=== PATIENT | male | born 1935 | race Caucasian/White ===

== ENCOUNTER 2017-01-10 17:46 | Inpatient (IN) | payer MEDICARE ==
[~2017-01-10] VITALS: Ht 180.3 cm; Wt 87.2 kg
[2017-01-10 18:42] LABS: BASO # 0.1 x10^3/uL (0.0-0.2); BASO % 1 % (0-3); EOS # 0.2 x10^3/uL (0.0-0.7); EOS % 2 % (0-3); HEMATOCRIT 41.1 % (39.0-53.0); LYMPH # 2.6 x10^3/uL (1.0-4.8); LYMPH % 25 % (24-48); MEAN CORPUSCULAR HEMOGLOBIN 30 pg (25-35); MEAN CORPUSCULAR HGB CONC 34 g/dL (31-37); MEAN CORPUSCULAR VOLUME 89 fL (79-100); MONO # 0.8 x10^3/uL (0.0-1.1); MONO % 8 % (0-9); NEUT # 6.8 x10^3uL (1.8-7.7); NEUT % 65 % (31-73); PLATELET COUNT 237 x10^3/uL (140-400); RED BLOOD COUNT 4.65 x10^6/uL (4.30-5.70); RED CELL DISTRIBUTION WIDTH 15.7 % (11.5-14.5); WHITE BLOOD COUNT 10.5 x10^3/uL (4.0-11.0)
[2017-01-10 18:59] LABS: ALBUMIN 3.6 g/dL (3.4-5.0); CALCIUM 8.8 mg/dL (8.5-10.1); CREATININE 2.2 mg/dL (0.7-1.3); DIRECT BILIRUBIN 0.1 mg/dL (0.0-0.2); GFR 28.7; MAGNESIUM 1.8 mg/dL (1.8-2.4); POTASSIUM 5.6 mmol/L (3.5-5.1); TOTAL BILIRUBIN 0.4 mg/dL (0.2-1.0); TOTAL PROTEIN 6.6 g/dL (6.4-8.2)
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
[2017-01-10 19:15] LABS: AMPHETAMINE/METHAMPHETAMINE NEG (NEG); BARBITURATES NEG (NEG); BENZODIAZEPINES POS (NEG); CANNABINOIDS NEG (NEG); COCAINE NEG (NEG); METHADONE NEG (NEG); OPIATES NEG (NEG); PHENCYCLIDINE NEG (NEG)
[2017-01-10 19:18] LABS: BACTERIA,URINE 0 /HPF (0-FEW); BILIRUBIN,URINE NEG (NEG); CLARITY,URINE CLEAR; COLOR,URINE YELLOW; GLUCOSE,URINE NEG (NEG); NITRITE,URINE NEG (NEG); RBC,URINE OCC /HPF (0-2); SQUAMOUS EPITHELIAL CELL,UR OCC /LPF; UROBILINOGEN,URINE 0.2 mg/dL (0.2 mg/dL); WBC,URINE OCC /HPF (0-4)
--- NOTE | 2017-01-10 19:19 | EKG ---
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
[2017-01-10] MEDS ORDERED: IV NORMAL SALINE 1,000ML 1,000 ML IV ONE (19:30)
[2017-01-10] MEDS ORDERED: LISI-338 PO (20:29)
[2017-01-10] MEDS ORDERED: LEVO88TA4 PO (20:29)
[2017-01-10] MEDS ORDERED: LORA10TA3 PO (20:29)
[2017-01-10] MEDS ORDERED: PRAM177L22 TP (20:29)
[2017-01-10] MEDS ORDERED: ACET325T9 PO (20:29)
[2017-01-10] MEDS ORDERED: MULT1TAB52 PO (20:29)
[2017-01-10] MEDS ORDERED: CLOP75TA57 PO (20:29)
[2017-01-10] MEDS ORDERED: GUAI473L15 PO (20:29)
[2017-01-10] MEDS ORDERED: BISA10SU2 RC (20:29)
[2017-01-10] MEDS ORDERED: POLY17PO5 PO (20:29)
[2017-01-10] MEDS ORDERED: CITA40TA5 PO (20:29)
[2017-01-10] MEDS ORDERED: TAMS0.4C97 PO (20:29)
[2017-01-10] MEDS ORDERED: MAGN400O7 PO (20:29)
[2017-01-10] MEDS ORDERED: ALPR0.5T6 PO (20:29)
[2017-01-10] MEDS ORDERED: ASPI-630 PO (20:29)
[2017-01-10] MEDS ORDERED: DONE10TA7 PO (20:32)
[2017-01-10] MEDS ORDERED: ALBU2.5V5 NEB (20:32)
[2017-01-10] MEDS ORDERED: ACETAMINOPHEN 325 MG TABLET PO PRN (22:45)
[2017-01-10] MEDS ORDERED: MAG HYDROX/AL HYDROX/SIMETH 30 ML ORAL.SUSP PO PRN (22:45)
[2017-01-10] MEDS ORDERED: MAGNESIUM HYDROXIDE 2,400 MG/30 ML ORAL.SUSP. PO PRN (22:45)
[2017-01-10] MEDS ORDERED: METHYL SALICYLATE/MENTHOL TOPICAL OINTMENT 29GM TUBE. TP PRN (22:45)
[2017-01-10] MEDS ORDERED: Influenza vaccine per PROTOCOL. MC PRN (23:15)
[2017-01-10 23:30] VITALS: BP 148/83
[2017-01-10] MEDS: ALPRAZolam 0.5 MG TABLET PO SCH (23:49)
[2017-01-10] MEDS: DONEPEZIL HCL 10 MG TABLET PO SCH (23:49)
[2017-01-11 06:14] VITALS: BP 133/71
[2017-01-11 07:47] LABS: CREATININE 2.3 mg/dL (0.7-1.3); GFR 27.3; POTASSIUM 5.7 mmol/L (3.5-5.1)
[2017-01-11] MEDS ORDERED: MAGNESIUM HYDROXIDE 2,400 MG/30 ML ORAL.SUSP. PO PRN (08:00)
[2017-01-11] MEDS ORDERED: ACETAMINOPHEN 325 MG TABLET PO PRN (08:00)
[2017-01-11] MEDS ORDERED: POLYETHYLENE GLYCOL 3350 17 GM PACKET. PO PRN (08:00)
[2017-01-11] MEDS ORDERED: BISACODYL 10 MG SUPP.RECT RC PRN (08:00)
[2017-01-11] MEDS ORDERED: ALBUTEROL SULFATE 2.5 MG/3 ML NEBU. NEB PRN (08:00)
[2017-01-11] MEDS ORDERED: guaiFENesin/CODEINE 100mg/10mg 5 ML LIQUID PO PRN (09:00)
[2017-01-11] MEDS ORDERED: SODIUM POLYSTYRENE SULFONATE 15 GM/60 ML ORAL.SUSP. PO ONE (09:00)
[2017-01-11] MEDS ORDERED: FLU VACC QS2017-18 (36MOS+)/PF 0.5 ML SYRINGE. VAX IM ONE (09:00)
[2017-01-11] MEDS: ALPRAZolam 0.5 MG TABLET PO SCH ×2 (09:35→20:06)
[2017-01-11] MEDS: CITALOPRAM 20 MG TABLET. PO SCH (09:35)
[2017-01-11] MEDS: CLOPIDOGREL BISULFATE 75 MG TABLET PO SCH (09:35)
[2017-01-11] MEDS: MULTIVITAMIN with MINERAL TABLET. PO SCH (09:35)
[2017-01-11] MEDS: CETIRIZINE HCL 10 MG TABLET PO SCH (09:35)
[2017-01-11] MEDS: TAMSULOSIN 0.4 MG CAP.ER.24H. PO SCH (09:35)
[2017-01-11] MEDS: ASPIRIN 81 MG TAB.CHEW PO SCH (09:36)
[2017-01-11] MEDS ORDERED: CALAMINE/ZINC OXIDE TOPICAL SUSPENSION 177ML BOTTLE. TP PRN (10:30)
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
[2017-01-11 16:38] VITALS: BP 120/72
[2017-01-11 19:30] LABS: THYROID STIM HORMONE (TSH) 3.071 uIU/mL (0.358-3.740)
[2017-01-11] MEDS: DONEPEZIL HCL 10 MG TABLET PO SCH (20:07)
[2017-01-11 21:11] LABS: T3 TOTAL 70 ng/dL (71-180)
--- NOTE | 2017-01-11 21:19 | PDOC ---
Exam Ric Demential Exam: Ric Note: Please also refer to the separate dictated note~for this date of service dictated separately.~Patient seen individually. Discussed the patient with Nursing staff reviewed the chart.~Reviewed interim history and current functioning. Reviewed vital signs,~Labs/ Radiology~and current medications noted below. Continue current treatment with the changes noted in the dictated addendum note Assessment: Vital Signs: Vital Signs Date Time Temp Pulse Resp B/P (MAP) Pulse Ox O2 Delivery O2 Flow Rate FiO2 01/11/17 16:38 98.4 72 16 120/72 (88) 96 01/11/17 06:14 Room Air 01/10/17 23:30 93.0 I&O Intake and Output 01/12/17 07:00 Intake Total 600 ml Balance 600 ml Intake Oral 600 ml # Bowel Movements 1 Labs: Laboratory Tests Test 01/11/17 06:58 Sodium Level 139 mmol/L (136-145) Potassium Level 5.7 mmol/L (3.5-5.1) H Chloride Level 111 mmol/L (98-107) H Carbon Dioxide Level 20 mmol/L (21-32) L Anion Gap 8 (6-14) Blood Urea Nitrogen 33 mg/dL (8-26) H Creatinine 2.3 mg/dL (0.7-1.3) H Estimated GFR (Cockcroft-Gault) 27.3 Glucose Level 77 mg/dL (70-99) Calcium Level 9.0 mg/dL (8.5-10.1) Current Medications: Meds: Current Medications Sodium Chloride 1,000 ml @ 100 mls/hr 1X ONCE IV ; Start 01/10/17 at 19:30; Stop 01/10/17 at 19:30; Status DC Alprazolam (Xanax) 0.5 mg BID PO Last administered on 01/11/17 20:06; Start at 23:00 Donepezil HCl (Aricept) 10 mg HS PO Last administered on 01/11/17 20:07; Start 01/10/17 at 23:00 Citalopram Hydrobromide (CeleXA) 40 mg DAILY PO Last administered on 01/11/17 09:35; Start 01/11/17 at 09:00 Acetaminophen (Tylenol) 650 mg PRN Q6HRS PRN PO PAIN / TEMP; Start 01/10/17 at 22:45; Status Cancel Multi-Ingredient Ointment (Analgesic [place]) 1 evie PRN QID PRN TP MUSCLE PAIN; Start 01/10/17 at 22:45 Al Hydroxide/Mg Hydroxide (Mylanta Plus Xs) 15 ml PRN AFTMEALHC PRN PO DYSPEPSIA; Start 01/10/17 at 22:45 Magnesium Hydroxide (Milk Of Magnesia) 2,400 mg PRN QHS PRN PO CONSTIPATION; Start 01/10/17 at 22:45; Stop 01/11/17 at 10:44; Status DC Info (FLU VACCINE per PROTOCOL) 1 ea PRN 1X PRN MC PER PROTOCOL; Start at 23:15; Status UNV Influenza Virus Vaccine Quadrival (Fluarix Quad [id number] Syringe) 0.5 ml ONCE ONCE VAX IM Last administered on 01/11/17 09:51; Start 01/11/17 at 09:00; Stop 01/11/17 at 09:01; Status DC Acetaminophen (Tylenol) 650 mg PRN Q4HRS PRN PO PAIN / TEMP; Start 01/11/17 at 08:00 Albuterol Sulfate (Ventolin) 2.5 mg PRN TID PRN NEB SHORTNESS OF BREATH; Start 01/11/17 at 08:00 Aspirin (Children'S Aspirin) 81 mg DAILY PO Last administered on 01/11/17 09: 36; Start 01/11/17 at 09:00 Bisacodyl (Dulcolax Supp) 10 mg PRN DAILY PRN RC CONSTIPATION; Start 01/11/17 at 08:00 Clopidogrel Bisulfate (Plavix) 75 mg DAILY PO Last administered on 01/11/17 09 :35; Start 01/11/17 at 09:00 Levothyroxine Sodium (Synthroid) 88 mcg DAILYAC PO ; Start 01/12/17 at 07:30 Magnesium Hydroxide (Milk Of Magnesia) 2,400 mg PRN DAILY PRN PO CONSTIPATION; Start 01/11/17 at 08:00 Polyethylene Glycol (miraLAX) 17 gm PRN DAILY PRN PO CONSTIPATION; Start at 08:00 Tamsulosin HCl (Flomax) 0.4 mg DAILY PO Last administered on 01/11/17 09:35; Start 01/11/17 at 09:00 Guaifenesin/ Codeine Phosphate (Robitussin Ac) 10 ml PRN Q4HRS PRN PO COUGH; Start 01/11/17 at 09:00 Cetirizine HCl (ZyrTEC) 10 mg DAILY PO Last administered on 01/11/17 09:35; Start 01/11/17 at 09:00 Multivitamins/ Calcium (Thera-M Plus) 1 tab DAILY PO Last administered on 09:35; Start 01/11/17 at 09:00 Calamine (Calamine Lotion) 1 evie PRN TID PRN TP ITCHING; Start 01/11/17 at 10: 30 Sodium Polystyrene Sulfonate (Kayexalate) 15 gm 1X ONCE PO Last administered on 01/11/17 09:36; Start 01/11/17 at 09:00; Stop 01/11/17 at 09:01; Status DC Active Scripts Active Reported Donepezil Hcl 10 Mg Tablet 10 Mg PO HS Albuterol Sulfate Neb Soln (Albuterol Sulfate) 2.5 Mg/3 Ml Vial.neb 1 Vial NEB PRN TID PRN Alprazolam 0.5 Mg Tablet 0.5 Mg PO BID Tylenol (Acetaminophen) 325 Mg Tablet 650 Mg PO PRN Q4HRS PRN Plavix (Clopidogrel Bisulfate) 75 Mg Tablet 75 Mg PO DAILY Multivitamins (Multivitamin) 1 Each Tablet 1 Tab PO DAILY Miralax (Polyethylene Glycol 3350) 17 Gm Powd.pack 17 Gm PO PRN DAILY PRN Milk Of Magnesia (Magnesium Hydroxide) 400 Mg/5 Ml Oral.susp 30 Ml PO PRN DAILY PRN Loratadine 10 Mg Tablet 10 Mg PO DAILY Lisinopril 5 Mg Tablet 5 Mg PO DAILY Levothyroxine Sodium 88 Mcg Tablet 88 Mcg PO DAILYAC Guaifenesin Ac Cough Syrup (Guaifenesin/Codeine Phosphate) 473 Ml Liquid 10 Ml PO PRN Q4HRS PRN Flomax (Tamsulosin Hcl) 0.4 Mg Cap.er.24h 0.4 Mg PO DAILY Bisacodyl 10 Mg Supp.rect 10 Mg RC PRN DAILY PRN Citalopram Hbr (Citalopram Hydrobromide) 40 Mg Tablet 40 Mg PO DAILY Caladryl 1%-8% Lotion (Pramoxine HCl/Calamine) 177 Ml Lotion 1 Evie TP PRN TID PRN Aspirin 81 Mg Tab.chew 81 Mg PO DAILY Diagnosis: Problems: (1) Dementia with behavioral disturbance KATARZYNA GRANT MD Jan 11, 2017 21:19
[2017-01-11 22:09] LABS: THYROXINE 6.2 ug/dL (4.5-12.0)
[2017-01-12 03:15] LABS: HEMOGLOBIN A1C 5.3 % (4.8-5.6)
[2017-01-12 06:10] LABS: CALCIUM 8.9 mg/dL (8.5-10.1); CREATININE 2.2 mg/dL (0.7-1.3); GFR 28.7; MAGNESIUM 1.9 mg/dL (1.8-2.4); POTASSIUM 4.9 mmol/L (3.5-5.1)
[2017-01-12 06:12] VITALS: BP 103/65
[2017-01-12] MEDS: LEVOTHYROXINE 88 MCG TABLET PO SCH ×2 (07:30→08:51)
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
[2017-01-12] MEDS: ALPRAZolam 0.5 MG TABLET PO SCH ×3 (08:50→20:00)
[2017-01-12] MEDS: CITALOPRAM 20 MG TABLET. PO SCH ×2 (08:50→09:00)
[2017-01-12] MEDS: TAMSULOSIN 0.4 MG CAP.ER.24H. PO SCH ×2 (08:50→09:00)
[2017-01-12] MEDS: CLOPIDOGREL BISULFATE 75 MG TABLET PO SCH ×2 (08:50→09:00)
[2017-01-12] MEDS: ASPIRIN 81 MG TAB.CHEW PO SCH ×2 (08:50→09:00)
[2017-01-12] MEDS: MULTIVITAMIN with MINERAL TABLET. PO SCH ×2 (08:50→09:00)
[2017-01-12] MEDS: CETIRIZINE HCL 10 MG TABLET PO SCH ×2 (08:50→09:00)
[2017-01-12 16:19] VITALS: BP 122/66
[2017-01-12] MEDS: QUEtiapine 25 MG TABLET. PO SCH (20:00)
[2017-01-12] MEDS: DONEPEZIL HCL 10 MG TABLET PO SCH (20:00)
--- NOTE | 2017-01-12 21:11 | PDOC ---
Exam Ric Demential Exam: Ric Note: Please also refer to the separate dictated note~for this date of service dictated separately.~Patient seen individually. Discussed the patient with Nursing staff reviewed the chart.~Reviewed interim history and current functioning. Reviewed vital signs,~Labs/ Radiology~and current medications noted below. Continue current treatment with the changes noted in the dictated addendum note Assessment: Vital Signs: Vital Signs Date Time Temp Pulse Resp B/P (MAP) Pulse Ox O2 Delivery O2 Flow Rate FiO2 01/12/17 16:19 97.3 73 18 122/66 (84) 96 01/11/17 06:14 Room Air 01/10/17 23:30 93.0 I&O Intake and Output 01/13/17 07:00 Intake Total 1020 ml Balance 1020 ml Intake Oral 1020 ml Labs: Laboratory Tests Test 01/12/17 05:52 Sodium Level 139 mmol/L (136-145) Potassium Level 4.9 mmol/L (3.5-5.1) Chloride Level 109 mmol/L (98-107) H Carbon Dioxide Level 21 mmol/L (21-32) Anion Gap 9 (6-14) Blood Urea Nitrogen 32 mg/dL (8-26) H Creatinine 2.2 mg/dL (0.7-1.3) H Estimated GFR (Cockcroft-Gault) 28.7 Glucose Level 88 mg/dL (70-99) Calcium Level 8.9 mg/dL (8.5-10.1) Magnesium Level 1.9 mg/dL (1.8-2.4) Current Medications: Meds: Current Medications Sodium Chloride 1,000 ml @ 100 mls/hr 1X ONCE IV ; Start 01/10/17 at 19:30; Stop 01/10/17 at 19:30; Status DC Alprazolam (Xanax) 0.5 mg BID PO Last administered on 01/12/17 20:00; Start at 23:00 Donepezil HCl (Aricept) 10 mg HS PO Last administered on 01/12/17 20:00; Start 01/10/17 at 23:00 Citalopram Hydrobromide (CeleXA) 40 mg DAILY PO Last administered on 01/11/17 09:35; Start 01/11/17 at 09:00 Acetaminophen (Tylenol) 650 mg PRN Q6HRS PRN PO PAIN / TEMP; Start 01/10/17 at 22:45; Status Cancel Multi-Ingredient Ointment (Analgesic [place]) 1 evie PRN QID PRN TP MUSCLE PAIN; Start 01/10/17 at 22:45 Al Hydroxide/Mg Hydroxide (Mylanta Plus Xs) 15 ml PRN AFTMEALHC PRN PO DYSPEPSIA; Start 01/10/17 at 22:45 Magnesium Hydroxide (Milk Of Magnesia) 2,400 mg PRN QHS PRN PO CONSTIPATION; Start 01/10/17 at 22:45; Stop 01/11/17 at 10:44; Status DC Info (FLU VACCINE per PROTOCOL) 1 ea PRN 1X PRN MC PER PROTOCOL; Start at 23:15; Status UNV Influenza Virus Vaccine Quadrival (Fluarix Quad [id number] Syringe) 0.5 ml ONCE ONCE VAX IM Last administered on 01/11/17 09:51; Start 01/11/17 at 09:00; Stop 01/11/17 at 09:01; Status DC Acetaminophen (Tylenol) 650 mg PRN Q4HRS PRN PO PAIN / TEMP; Start 01/11/17 at 08:00 Albuterol Sulfate (Ventolin) 2.5 mg PRN TID PRN NEB SHORTNESS OF BREATH; Start 01/11/17 at 08:00 Aspirin (Children'S Aspirin) 81 mg DAILY PO Last administered on 01/11/17 09: 36; Start 01/11/17 at 09:00 Bisacodyl (Dulcolax Supp) 10 mg PRN DAILY PRN RC CONSTIPATION; Start 01/11/17 at 08:00 Clopidogrel Bisulfate (Plavix) 75 mg DAILY PO Last administered on 01/11/17 09 :35; Start 01/11/17 at 09:00 Levothyroxine Sodium (Synthroid) 88 mcg DAILYAC PO ; Start 01/12/17 at 07:30 Magnesium Hydroxide (Milk Of Magnesia) 2,400 mg PRN DAILY PRN PO CONSTIPATION; Start 01/11/17 at 08:00 Polyethylene Glycol (miraLAX) 17 gm PRN DAILY PRN PO CONSTIPATION; Start at 08:00 Tamsulosin HCl (Flomax) 0.4 mg DAILY PO Last administered on 01/11/17 09:35; Start 01/11/17 at 09:00 Guaifenesin/ Codeine Phosphate (Robitussin Ac) 10 ml PRN Q4HRS PRN PO COUGH; Start 01/11/17 at 09:00 Cetirizine HCl (ZyrTEC) 10 mg DAILY PO Last administered on 01/11/17 09:35; Start 01/11/17 at 09:00 Multivitamins/ Calcium (Thera-M Plus) 1 tab DAILY PO Last administered on 09:35; Start 01/11/17 at 09:00 Calamine (Calamine Lotion) 1 evie PRN TID PRN TP ITCHING; Start 01/11/17 at 10: 30 Sodium Polystyrene Sulfonate (Kayexalate) 15 gm 1X ONCE PO Last administered on 01/11/17 09:36; Start 01/11/17 at 09:00; Stop 01/11/17 at 09:01; Status DC Quetiapine Fumarate (SEROquel) 25 mg HS PO Last administered on 01/12/17 20:00 ; Start 01/12/17 at 21:00 Active Scripts Active Reported Donepezil Hcl 10 Mg Tablet 10 Mg PO HS Albuterol Sulfate Neb Soln (Albuterol Sulfate) 2.5 Mg/3 Ml Vial.neb 1 Vial NEB PRN TID PRN Alprazolam 0.5 Mg Tablet 0.5 Mg PO BID Tylenol (Acetaminophen) 325 Mg Tablet 650 Mg PO PRN Q4HRS PRN Plavix (Clopidogrel Bisulfate) 75 Mg Tablet 75 Mg PO DAILY Multivitamins (Multivitamin) 1 Each Tablet 1 Tab PO DAILY Miralax (Polyethylene Glycol 3350) 17 Gm Powd.pack 17 Gm PO PRN DAILY PRN Milk Of Magnesia (Magnesium Hydroxide) 400 Mg/5 Ml Oral.susp 30 Ml PO PRN DAILY PRN Loratadine 10 Mg Tablet 10 Mg PO DAILY Lisinopril 5 Mg Tablet 5 Mg PO DAILY Levothyroxine Sodium 88 Mcg Tablet 88 Mcg PO DAILYAC Guaifenesin Ac Cough Syrup (Guaifenesin/Codeine Phosphate) 473 Ml Liquid 10 Ml PO PRN Q4HRS PRN Flomax (Tamsulosin Hcl) 0.4 Mg Cap.er.24h 0.4 Mg PO DAILY Bisacodyl 10 Mg Supp.rect 10 Mg RC PRN DAILY PRN Citalopram Hbr (Citalopram Hydrobromide) 40 Mg Tablet 40 Mg PO DAILY Caladryl 1%-8% Lotion (Pramoxine HCl/Calamine) 177 Ml Lotion 1 Evie TP PRN TID PRN Aspirin 81 Mg Tab.chew 81 Mg PO DAILY Diagnosis: Problems: (1) Anxiety disorder (2) Bipolar affective, mixed (3) Impulse control disorder KAATRZYNA GRANT MD Jan 12, 2017 21:11
[2017-01-13 06:27] VITALS: BP 119/71
[2017-01-13] MEDS ORDERED: CALAMINE/ZINC OXIDE TOPICAL SUSPENSION 177ML BOTTLE. TP PRN (07:12)
[2017-01-13] MEDS: LEVOTHYROXINE 88 MCG TABLET PO SCH (09:00)
[2017-01-13] MEDS: CETIRIZINE HCL 10 MG TABLET PO SCH (09:00)
[2017-01-13] MEDS: MULTIVITAMIN with MINERAL TABLET. PO SCH (09:00)
[2017-01-13] MEDS: CITALOPRAM 20 MG TABLET. PO SCH (09:00)
[2017-01-13] MEDS: CLOPIDOGREL BISULFATE 75 MG TABLET PO SCH (09:01)
[2017-01-13] MEDS: ASPIRIN 81 MG TAB.CHEW PO SCH (09:01)
[2017-01-13] MEDS: TAMSULOSIN 0.4 MG CAP.ER.24H. PO SCH (09:01)
[2017-01-13] MEDS: ALPRAZolam 0.5 MG TABLET PO SCH ×2 (09:02→21:21)
[2017-01-13 17:15] VITALS: BP 154/93
[2017-01-13] MEDS: QUEtiapine 25 MG TABLET. PO SCH (21:19)
[2017-01-13] MEDS: DONEPEZIL HCL 10 MG TABLET PO SCH (21:19)
--- NOTE | 2017-01-13 21:22 | PDOC ---
Exam Ric Demential Exam: Ric Note: Please also refer to the separate dictated note~for this date of service dictated separately.~Patient seen individually. Discussed the patient with Nursing staff reviewed the chart.~Reviewed interim history and current functioning. Reviewed vital signs,~Labs/ Radiology~and current medications noted below. Continue current treatment with the changes noted in the dictated addendum note Assessment: Vital Signs: Vital Signs Date Time Temp Pulse Resp B/P (MAP) Pulse Ox O2 Delivery O2 Flow Rate FiO2 01/13/17 17:15 97.4 61 19 154/93 (113) 94 Room Air 01/10/17 23:30 93.0 I&O Intake and Output 01/14/17 07:00 Intake Total 840 ml Balance 840 ml Intake Oral 840 ml # Bowel Movements 1 Current Medications: Meds: Current Medications Sodium Chloride 1,000 ml @ 100 mls/hr 1X ONCE IV ; Start 01/10/17 at 19:30; Stop 01/10/17 at 19:30; Status DC Alprazolam (Xanax) 0.5 mg BID PO Last administered on 01/13/17t 21:21; Start at 23:00 Donepezil HCl (Aricept) 10 mg HS PO Last administered on 01/13/17 21:19; Start 01/10/17 at 23:00 Citalopram Hydrobromide (CeleXA) 40 mg DAILY PO Last administered on 01/13/17 09:00; Start 01/11/17 at 09:00 Acetaminophen (Tylenol) 650 mg PRN Q6HRS PRN PO PAIN / TEMP; Start 01/10/17 at 22:45; Status Cancel Multi-Ingredient Ointment (Analgesic [place]) 1 evie PRN QID PRN TP MUSCLE PAIN; Start 01/10/17 at 22:45 Al Hydroxide/Mg Hydroxide (Mylanta Plus Xs) 15 ml PRN AFTMEALHC PRN PO DYSPEPSIA; Start 01/10/17 at 22:45 Magnesium Hydroxide (Milk Of Magnesia) 2,400 mg PRN QHS PRN PO CONSTIPATION; Start 01/10/17 at 22:45; Stop 01/11/17 at 10:44; Status DC Info (FLU VACCINE per PROTOCOL) 1 ea PRN 1X PRN MC PER PROTOCOL; Start at 23:15; Status UNV Influenza Virus Vaccine Quadrival (Fluarix Quad 1185-7486 Syringe) 0.5 ml ONCE ONCE VAX IM Last administered on 01/11/17 09:51; Start 01/11/17 at 09:00; Stop 01/11/17 at 09:01; Status DC Acetaminophen (Tylenol) 650 mg PRN Q4HRS PRN PO PAIN / TEMP; Start 01/11/17 at 08:00 Albuterol Sulfate (Ventolin) 2.5 mg PRN TID PRN NEB SHORTNESS OF BREATH; Start 01/11/17 at 08:00 Aspirin (Children'S Aspirin) 81 mg DAILY PO Last administered on 01/13/17 09: 01; Start 01/11/17 at 09:00 Bisacodyl (Dulcolax Supp) 10 mg PRN DAILY PRN RC CONSTIPATION; Start 01/11/17 at 08:00 Clopidogrel Bisulfate (Plavix) 75 mg DAILY PO Last administered on 01/13/17 09 :01; Start 01/11/17 at 09:00 Levothyroxine Sodium (Synthroid) 88 mcg DAILYAC PO Last administered on 09:00; Start 01/12/17 at 07:30 Magnesium Hydroxide (Milk Of Magnesia) 2,400 mg PRN DAILY PRN PO CONSTIPATION; Start 01/11/17 at 08:00 Polyethylene Glycol (miraLAX) 17 gm PRN DAILY PRN PO CONSTIPATION; Start at 08:00 Tamsulosin HCl (Flomax) 0.4 mg DAILY PO Last administered on 01/13/17 09:01; Start 01/11/17 at 09:00 Guaifenesin/ Codeine Phosphate (Robitussin Ac) 10 ml PRN Q4HRS PRN PO COUGH; Start 01/11/17 at 09:00 Cetirizine HCl (ZyrTEC) 10 mg DAILY PO Last administered on 01/13/17 09:00; Start 01/11/17 at 09:00 Multivitamins/ Calcium (Thera-M Plus) 1 tab DAILY PO Last administered on 09:00; Start 01/11/17 at 09:00 Calamine (Calamine Lotion) 1 evie PRN TID PRN TP ITCHING; Start 01/11/17 at 10: 30; Stop 01/13/17 at 07:12; Status DC Sodium Polystyrene Sulfonate (Kayexalate) 15 gm 1X ONCE PO Last administered on 01/11/17 09:36; Start 01/11/17 at 09:00; Stop 01/11/17 at 09:01; Status DC Quetiapine Fumarate (SEROquel) 25 mg HS PO Last administered on 01/13/17 21:19 ; Start 01/12/17 at 21:00 Calamine (Calamine Lotion) 1 evie PRN TID PRN TP ITCHING; Start 01/13/17 at 07: 12 Active Scripts Active Reported Donepezil Hcl 10 Mg Tablet 10 Mg PO HS Albuterol Sulfate Neb Soln (Albuterol Sulfate) 2.5 Mg/3 Ml Vial.neb 1 Vial NEB PRN TID PRN Alprazolam 0.5 Mg Tablet 0.5 Mg PO BID Tylenol (Acetaminophen) 325 Mg Tablet 650 Mg PO PRN Q4HRS PRN Plavix (Clopidogrel Bisulfate) 75 Mg Tablet 75 Mg PO DAILY Multivitamins (Multivitamin) 1 Each Tablet 1 Tab PO DAILY Miralax (Polyethylene Glycol 3350) 17 Gm Powd.pack 17 Gm PO PRN DAILY PRN Milk Of Magnesia (Magnesium Hydroxide) 400 Mg/5 Ml Oral.susp 30 Ml PO PRN DAILY PRN Loratadine 10 Mg Tablet 10 Mg PO DAILY Lisinopril 5 Mg Tablet 5 Mg PO DAILY Levothyroxine Sodium 88 Mcg Tablet 88 Mcg PO DAILYAC Guaifenesin Ac Cough Syrup (Guaifenesin/Codeine Phosphate) 473 Ml Liquid 10 Ml PO PRN Q4HRS PRN Flomax (Tamsulosin Hcl) 0.4 Mg Cap.er.24h 0.4 Mg PO DAILY Bisacodyl 10 Mg Supp.rect 10 Mg RC PRN DAILY PRN Citalopram Hbr (Citalopram Hydrobromide) 40 Mg Tablet 40 Mg PO DAILY Caladryl 1%-8% Lotion (Pramoxine HCl/Calamine) 177 Ml Lotion 1 Evie TP PRN TID PRN Aspirin 81 Mg Tab.chew 81 Mg PO DAILY Diagnosis: Problems: (1) Anxiety disorder (2) Bipolar affective, mixed (3) Impulse control disorder KATARZYNA GRANT MD Jan 13, 2017 21:22
--- NOTE | 2017-01-13 22:29 | PN ---
DATE: 01/12/2017 This is a late entry for 01/12/2017 and covers elements not covered in my initial note of 01/12/217. SUBJECTIVE: I met with the patient individually in his room the evening of 01/12/2017. He has been noncompliant with his medications, somewhat irritable, labile per nursing report. REVIEW OF SYSTEMS: Positive for some tiredness. No CV, , pulmonary, eye, ENT system symptoms on review. Fairly pleasant with me individually, but paranoid. MENTAL STATUS EXAM: Oriented reasonably. Speech is coherent, abstraction fair, computation impaired, language function intact, attention span short. Mood and affect, intermittently anxious, labile. LABORATORY DATA: Reviewed. IMPRESSION: Unchanged from initial note. PLAN: Add Seroquel 25 mg orally at bedtime. Continue Celexa 40 mg a day, Xanax 0.5 mg b.i.d., Aricept 10 mg a day. Reviewed drug interactions, risk/benefit ratio favors no further change. KATARZYNA GRANT MD DR: SAMANTHA/luis miguel JOB#: [id number] / [id number]
[2017-01-14 06:26] VITALS: BP 123/60
[2017-01-14] MEDS: CLOPIDOGREL BISULFATE 75 MG TABLET PO SCH (08:56)
[2017-01-14] MEDS: TAMSULOSIN 0.4 MG CAP.ER.24H. PO SCH (08:56)
[2017-01-14] MEDS: ALPRAZolam 0.5 MG TABLET PO SCH ×2 (08:57→21:45)
[2017-01-14] MEDS: CITALOPRAM 20 MG TABLET. PO SCH (08:57)
[2017-01-14] MEDS: LEVOTHYROXINE 88 MCG TABLET PO SCH (08:57)
[2017-01-14] MEDS: MULTIVITAMIN with MINERAL TABLET. PO SCH (08:57)
[2017-01-14] MEDS: CETIRIZINE HCL 10 MG TABLET PO SCH (08:57)
[2017-01-14] MEDS: ASPIRIN 81 MG TAB.CHEW PO SCH (08:57)
[2017-01-14 16:35] VITALS: BP 118/58
[2017-01-14] MEDS: DONEPEZIL HCL 10 MG TABLET PO SCH (21:44)
[2017-01-14] MEDS: QUEtiapine 25 MG TABLET. PO SCH (21:44)
--- NOTE | 2017-01-14 22:57 | PDOC ---
Exam Ric Demential Exam: Ric Note: Please also refer to the separate dictated note~for this date of service dictated separately.~Patient seen individually. Discussed the patient with Nursing staff reviewed the chart.~Reviewed interim history and current functioning. Reviewed vital signs,~Labs/ Radiology~and current medications noted below. Continue current treatment with the changes noted in the dictated addendum note Assessment: Vital Signs: Vital Signs Date Time Temp Pulse Resp B/P (MAP) Pulse Ox O2 Delivery O2 Flow Rate FiO2 01/14/17 16:35 97.1 69 18 118/58 (78) 96 01/13/17 17:15 Room Air 01/10/17 23:30 93.0 I&O Intake and Output 01/15/17 07:00 Intake Total 960 ml Balance 960 ml Intake Oral 960 ml # Bowel Movements 1 Current Medications: Meds: Current Medications Sodium Chloride 1,000 ml @ 100 mls/hr 1X ONCE IV ; Start 01/10/17 at 19:30; Stop 01/10/17 at 19:30; Status DC Alprazolam (Xanax) 0.5 mg BID PO Last administered on 01/14/17 21:45; Start at 23:00 Donepezil HCl (Aricept) 10 mg HS PO Last administered on 01/14/17 21:44; Start 01/10/17 at 23:00 Citalopram Hydrobromide (CeleXA) 40 mg DAILY PO Last administered on 01/14/17 08:57; Start 01/11/17 at 09:00; Stop 01/14/17 at 19:16; Status DC Acetaminophen (Tylenol) 650 mg PRN Q6HRS PRN PO PAIN / TEMP; Start 01/10/17 at 22:45; Status Cancel Multi-Ingredient Ointment (Analgesic [place]) 1 evie PRN QID PRN TP MUSCLE PAIN; Start 01/10/17 at 22:45 Al Hydroxide/Mg Hydroxide (Mylanta Plus Xs) 15 ml PRN AFTMEALHC PRN PO DYSPEPSIA; Start 01/10/17 at 22:45 Magnesium Hydroxide (Milk Of Magnesia) 2,400 mg PRN QHS PRN PO CONSTIPATION; Start 01/10/17 at 22:45; Stop 01/11/17 at 10:44; Status DC Info (FLU VACCINE per PROTOCOL) 1 ea PRN 1X PRN MC PER PROTOCOL; Start at 23:15; Status UNV Influenza Virus Vaccine Quadrival (Fluarix Quad 3959-8553 Syringe) 0.5 ml ONCE ONCE VAX IM Last administered on 01/11/17 09:51; Start 01/11/17 at 09:00; Stop 01/11/17 at 09:01; Status DC Acetaminophen (Tylenol) 650 mg PRN Q4HRS PRN PO PAIN / TEMP; Start 01/11/17 at 08:00 Albuterol Sulfate (Ventolin) 2.5 mg PRN TID PRN NEB SHORTNESS OF BREATH; Start 01/11/17 at 08:00 Aspirin (Children'S Aspirin) 81 mg DAILY PO Last administered on 01/14/17 08: 57; Start 01/11/17 at 09:00 Bisacodyl (Dulcolax Supp) 10 mg PRN DAILY PRN RC CONSTIPATION; Start 01/11/17 at 08:00 Clopidogrel Bisulfate (Plavix) 75 mg DAILY PO Last administered on 01/14/17 08 :56; Start 01/11/17 at 09:00 Levothyroxine Sodium (Synthroid) 88 mcg DAILYAC PO Last administered on 08:57; Start 01/12/17 at 07:30 Magnesium Hydroxide (Milk Of Magnesia) 2,400 mg PRN DAILY PRN PO CONSTIPATION; Start 01/11/17 at 08:00 Polyethylene Glycol (miraLAX) 17 gm PRN DAILY PRN PO CONSTIPATION; Start at 08:00 Tamsulosin HCl (Flomax) 0.4 mg DAILY PO Last administered on 01/14/17 08:56; Start 01/11/17 at 09:00 Guaifenesin/ Codeine Phosphate (Robitussin Ac) 10 ml PRN Q4HRS PRN PO COUGH; Start 01/11/17 at 09:00 Cetirizine HCl (ZyrTEC) 10 mg DAILY PO Last administered on 01/14/17 08:57; Start 01/11/17 at 09:00 Multivitamins/ Calcium (Thera-M Plus) 1 tab DAILY PO Last administered on 08:57; Start 01/11/17 at 09:00 Calamine (Calamine Lotion) 1 evie PRN TID PRN TP ITCHING; Start 01/11/17 at 10: 30; Stop 01/13/17 at 07:12; Status DC Sodium Polystyrene Sulfonate (Kayexalate) 15 gm 1X ONCE PO Last administered on 01/11/17t 09:36; Start 01/11/17 at 09:00; Stop 01/11/17 at 09:01; Status DC Quetiapine Fumarate (SEROquel) 25 mg HS PO Last administered on 01/14/17t 21:44 ; Start 01/12/17 at 21:00 Calamine (Calamine Lotion) 1 evie PRN TID PRN TP ITCHING; Start 01/13/17 at 07: 12 Citalopram Hydrobromide (CeleXA) 30 mg DAILY PO ; Start 01/15/17 at 09:00 Quetiapine Fumarate (SEROquel) 12.5 mg BID@0900,1300 PO ; Start 01/15/17 at 09: 00 Active Scripts Active Reported Donepezil Hcl 10 Mg Tablet 10 Mg PO HS Albuterol Sulfate Neb Soln (Albuterol Sulfate) 2.5 Mg/3 Ml Vial.neb 1 Vial NEB PRN TID PRN Alprazolam 0.5 Mg Tablet 0.5 Mg PO BID Tylenol (Acetaminophen) 325 Mg Tablet 650 Mg PO PRN Q4HRS PRN Plavix (Clopidogrel Bisulfate) 75 Mg Tablet 75 Mg PO DAILY Multivitamins (Multivitamin) 1 Each Tablet 1 Tab PO DAILY Miralax (Polyethylene Glycol 3350) 17 Gm Powd.pack 17 Gm PO PRN DAILY PRN Milk Of Magnesia (Magnesium Hydroxide) 400 Mg/5 Ml Oral.susp 30 Ml PO PRN DAILY PRN Loratadine 10 Mg Tablet 10 Mg PO DAILY Lisinopril 5 Mg Tablet 5 Mg PO DAILY Levothyroxine Sodium 88 Mcg Tablet 88 Mcg PO DAILYAC Guaifenesin Ac Cough Syrup (Guaifenesin/Codeine Phosphate) 473 Ml Liquid 10 Ml PO PRN Q4HRS PRN Flomax (Tamsulosin Hcl) 0.4 Mg Cap.er.24h 0.4 Mg PO DAILY Bisacodyl 10 Mg Supp.rect 10 Mg RC PRN DAILY PRN Citalopram Hbr (Citalopram Hydrobromide) 40 Mg Tablet 40 Mg PO DAILY Caladryl 1%-8% Lotion (Pramoxine HCl/Calamine) 177 Ml Lotion 1 Evie TP PRN TID PRN Aspirin 81 Mg Tab.chew 81 Mg PO DAILY Diagnosis: Problems: (1) Anxiety disorder (2) Bipolar affective, mixed (3) Impulse control disorder KATARZYNA GRANT MD Jan 14, 2017 22:57
[2017-01-15 06:33] VITALS: BP 107/76
--- NOTE | 2017-01-15 07:47 | PN ---
DATE: 01/10/2017 PSYCHIATRIC PROGRESS NOTE This is a late entry of 01/13/2017 covers elements not covered in my initial note. SUBJECTIVE: I met with the patient evening of 01/13/2017. He was in his room, calm, compliant, less irritable, less paranoid, more accepting of his responsibility for reacting to circumstances, which is something he ____ control. REVIEW OF SYSTEMS: No CV, , pulmonary, eye, ENT system symptoms on review. MENTAL STATUS EXAM: Oriented to himself and situation. Speech is coherent, abstraction fair, computation impaired, language function intact, attention span short. Mood and affect still somewhat dysphoric, anxious. LABORATORY DATA: Reviewed. IMPRESSION: Unchanged from initial note. PLAN: Continue current psychotropics including Seroquel 25 mg at bedtime, Celexa 40 mg a day, Xanax 0.5 b.i.d., Aricept 10 mg a day. Reviewed drug interactions. Risk/benefit ratio favors no further change at this time. MAN Lizet GRANT MD DR: SAMANTHA/luis miguel JOB#: [id number] / [id number]
[2017-01-15] MEDS: CETIRIZINE HCL 10 MG TABLET PO SCH (09:45)
[2017-01-15] MEDS: ALPRAZolam 0.5 MG TABLET PO SCH ×2 (09:45→20:40)
[2017-01-15] MEDS: LEVOTHYROXINE 88 MCG TABLET PO SCH (09:45)
[2017-01-15] MEDS: ASPIRIN 81 MG TAB.CHEW PO SCH (09:45)
[2017-01-15] MEDS: MULTIVITAMIN with MINERAL TABLET. PO SCH (09:45)
[2017-01-15] MEDS: CLOPIDOGREL BISULFATE 75 MG TABLET PO SCH (09:45)
[2017-01-15] MEDS: TAMSULOSIN 0.4 MG CAP.ER.24H. PO SCH (09:46)
[2017-01-15] MEDS: CITALOPRAM 10 MG TABLET. PO SCH (09:47)
[2017-01-15] MEDS: QUEtiapine 25 MG TABLET. PO SCH ×3 (09:47→20:39)
[2017-01-15 16:31] VITALS: BP 107/57
[2017-01-15] MEDS: DONEPEZIL HCL 10 MG TABLET PO SCH (20:39)
--- NOTE | 2017-01-15 21:13 | PDOC ---
Exam Ric Demential Exam: Ric Note: Please also refer to the separate dictated note~for this date of service dictated separately.~Patient seen individually. Discussed the patient with Nursing staff reviewed the chart.~Reviewed interim history and current functioning. Reviewed vital signs,~Labs/ Radiology~and current medications noted below. Continue current treatment with the changes noted in the dictated addendum note Assessment: Vital Signs: Vital Signs Date Time Temp Pulse Resp B/P (MAP) Pulse Ox O2 Delivery O2 Flow Rate FiO2 01/15/17 16:31 97.3 56 20 107/57 (74) 92 01/13/17 17:15 Room Air 01/10/17 23:30 93.0 I&O Intake and Output 01/16/17 07:00 Intake Total 960 ml Balance 960 ml Intake Oral 960 ml Current Medications: Meds: Current Medications Sodium Chloride 1,000 ml @ 100 mls/hr 1X ONCE IV ; Start 01/10/17 at 19:30; Stop 01/10/17 at 19:30; Status DC Alprazolam (Xanax) 0.5 mg BID PO Last administered on 01/15/17 20:40; Start at 23:00 Donepezil HCl (Aricept) 10 mg HS PO Last administered on 01/15/17 20:39; Start 01/10/17 at 23:00 Citalopram Hydrobromide (CeleXA) 40 mg DAILY PO Last administered on 01/14/17 08:57; Start 01/11/17 at 09:00; Stop 01/14/17 at 19:16; Status DC Acetaminophen (Tylenol) 650 mg PRN Q6HRS PRN PO PAIN / TEMP; Start 01/10/17 at 22:45; Status Cancel Multi-Ingredient Ointment (Analgesic [place]) 1 evie PRN QID PRN TP MUSCLE PAIN; Start 01/10/17 at 22:45 Al Hydroxide/Mg Hydroxide (Mylanta Plus Xs) 15 ml PRN AFTMEALHC PRN PO DYSPEPSIA; Start 01/10/17 at 22:45 Magnesium Hydroxide (Milk Of Magnesia) 2,400 mg PRN QHS PRN PO CONSTIPATION; Start 01/10/17 at 22:45; Stop 01/11/17 at 10:44; Status DC Info (FLU VACCINE per PROTOCOL) 1 ea PRN 1X PRN MC PER PROTOCOL; Start at 23:15; Status UNV Influenza Virus Vaccine Quadrival (Fluarix Quad [id number] Syringe) 0.5 ml ONCE ONCE VAX IM Last administered on 01/11/17 09:51; Start 01/11/17 at 09:00; Stop 01/11/17 at 09:01; Status DC Acetaminophen (Tylenol) 650 mg PRN Q4HRS PRN PO PAIN / TEMP; Start 01/11/17 at 08:00 Albuterol Sulfate (Ventolin) 2.5 mg PRN TID PRN NEB SHORTNESS OF BREATH; Start 01/11/17 at 08:00 Aspirin (Children'S Aspirin) 81 mg DAILY PO Last administered on 01/15/17 09: 45; Start 01/11/17 at 09:00 Bisacodyl (Dulcolax Supp) 10 mg PRN DAILY PRN RC CONSTIPATION; Start 01/11/17 at 08:00 Clopidogrel Bisulfate (Plavix) 75 mg DAILY PO Last administered on 01/15/17 09 :45; Start 01/11/17 at 09:00 Levothyroxine Sodium (Synthroid) 88 mcg DAILYAC PO Last administered on 09:45; Start 01/12/17 at 07:30 Magnesium Hydroxide (Milk Of Magnesia) 2,400 mg PRN DAILY PRN PO CONSTIPATION; Start 01/11/17 at 08:00 Polyethylene Glycol (miraLAX) 17 gm PRN DAILY PRN PO CONSTIPATION; Start at 08:00 Tamsulosin HCl (Flomax) 0.4 mg DAILY PO Last administered on 01/15/17 09:46; Start 01/11/17 at 09:00 Guaifenesin/ Codeine Phosphate (Robitussin Ac) 10 ml PRN Q4HRS PRN PO COUGH; Start 01/11/17 at 09:00 Cetirizine HCl (ZyrTEC) 10 mg DAILY PO Last administered on 01/15/17 09:45; Start 01/11/17 at 09:00 Multivitamins/ Calcium (Thera-M Plus) 1 tab DAILY PO Last administered on 09:45; Start 01/11/17 at 09:00 Calamine (Calamine Lotion) 1 evie PRN TID PRN TP ITCHING; Start 01/11/17 at 10: 30; Stop 01/13/17 at 07:12; Status DC Sodium Polystyrene Sulfonate (Kayexalate) 15 gm 1X ONCE PO Last administered on 01/11/17 09:36; Start 01/11/17 at 09:00; Stop 01/11/17 at 09:01; Status DC Quetiapine Fumarate (SEROquel) 25 mg HS PO Last administered on 01/15/17 20:39 ; Start 01/12/17 at 21:00 Calamine (Calamine Lotion) 1 evie PRN TID PRN TP ITCHING; Start 01/13/17 at 07: 12 Citalopram Hydrobromide (CeleXA) 30 mg DAILY PO Last administered on 01/15/17 09:47; Start 01/15/17 at 09:00 Quetiapine Fumarate (SEROquel) 12.5 mg BID@0900,1300 PO Last administered on 14:47; Start 01/15/17 at 09:00 Active Scripts Active Reported Donepezil Hcl 10 Mg Tablet 10 Mg PO HS Albuterol Sulfate Neb Soln (Albuterol Sulfate) 2.5 Mg/3 Ml Vial.neb 1 Vial NEB PRN TID PRN Alprazolam 0.5 Mg Tablet 0.5 Mg PO BID Tylenol (Acetaminophen) 325 Mg Tablet 650 Mg PO PRN Q4HRS PRN Plavix (Clopidogrel Bisulfate) 75 Mg Tablet 75 Mg PO DAILY Multivitamins (Multivitamin) 1 Each Tablet 1 Tab PO DAILY Miralax (Polyethylene Glycol 3350) 17 Gm Powd.pack 17 Gm PO PRN DAILY PRN Milk Of Magnesia (Magnesium Hydroxide) 400 Mg/5 Ml Oral.susp 30 Ml PO PRN DAILY PRN Loratadine 10 Mg Tablet 10 Mg PO DAILY Lisinopril 5 Mg Tablet 5 Mg PO DAILY Levothyroxine Sodium 88 Mcg Tablet 88 Mcg PO DAILYAC Guaifenesin Ac Cough Syrup (Guaifenesin/Codeine Phosphate) 473 Ml Liquid 10 Ml PO PRN Q4HRS PRN Flomax (Tamsulosin Hcl) 0.4 Mg Cap.er.24h 0.4 Mg PO DAILY Bisacodyl 10 Mg Supp.rect 10 Mg RC PRN DAILY PRN Citalopram Hbr (Citalopram Hydrobromide) 40 Mg Tablet 40 Mg PO DAILY Caladryl 1%-8% Lotion (Pramoxine HCl/Calamine) 177 Ml Lotion 1 Evie TP PRN TID PRN Aspirin 81 Mg Tab.chew 81 Mg PO DAILY Diagnosis: Problems: (1) Anxiety disorder (2) Bipolar affective, mixed (3) Impulse control disorder KATARZYNA GRANT MD Jan 15, 2017 21:13
[2017-01-16 06:28] VITALS: BP 136/72
[2017-01-16] MEDS: MULTIVITAMIN with MINERAL TABLET. PO SCH (09:19)
[2017-01-16] MEDS: CETIRIZINE HCL 10 MG TABLET PO SCH (09:19)
[2017-01-16] MEDS: TAMSULOSIN 0.4 MG CAP.ER.24H. PO SCH (09:19)
[2017-01-16] MEDS: LEVOTHYROXINE 88 MCG TABLET PO SCH (09:20)
[2017-01-16] MEDS: CITALOPRAM 10 MG TABLET. PO SCH (09:20)
[2017-01-16] MEDS: QUEtiapine 25 MG TABLET. PO SCH ×3 (09:20→19:59)
[2017-01-16] MEDS: CLOPIDOGREL BISULFATE 75 MG TABLET PO SCH (09:20)
[2017-01-16] MEDS: ASPIRIN 81 MG TAB.CHEW PO SCH (09:20)
[2017-01-16] MEDS: ALPRAZolam 0.5 MG TABLET PO SCH ×2 (09:20→20:01)
[2017-01-16 16:15] VITALS: BP 143/68
--- NOTE | 2017-01-16 18:04 | PN ---
DATE: 01/14/2017 This is late entry for 01/14/2017, covers elements not covered in my initial note of 01/14/2017. SUBJECTIVE: I met with the patient on the evening of 01/14/2017. Per nursing report, he is being doing a little bit worse. He has been agitated at times, refused his a.m. medications, made vague homicidal threats of "choking the son of a bitch" for the incident he had at the care home with another resident, which prompted his admission. I processed this with him individually in his room at some length with limited insight on his part. REVIEW OF SYSTEMS: No CV, , pulmonary, eye, ENT system symptoms on review. Reliability fair. MENTAL STATUS EXAM: Reasonably oriented. Speech is coherent. He is very appreciative of my visit in his room. Abstraction fair, computation impaired, language function intact, attention span short. Mood and affect somewhat anxious, labile at times. LABORATORY DATA: Reviewed. IMPRESSION: Unchanged from initial note, bipolar 1 disorder, mixed with psychotic features; history of major depressive disorder; anxiety disorder, unspecified; impulse control disorder, unspecified. PLAN: Reduce Celexa from 40 mg a day to 30 mg a day. Start Seroquel 12.5 mg at 9:00 a.m. and 1:00 p.m. Continue Xanax 0.5 mg b.i.d., Aricept 10 mg a day, Seroquel 25 mg at bedtime. Reviewed drug interactions, risk/benefit ratio favors no further change at this time. KATARZYNA GRANT MD DR: SAMANTHA/luis miguel JOB#: [id number] / [id number]
[2017-01-16] MEDS: DONEPEZIL HCL 10 MG TABLET PO SCH (19:59)
--- NOTE | 2017-01-16 21:08 | PDOC ---
Exam Ric Demential Exam: Ric Note: Please also refer to the separate dictated note~for this date of service dictated separately.~Patient seen individually. Discussed the patient with Nursing staff reviewed the chart.~Reviewed interim history and current functioning. Reviewed vital signs,~Labs/ Radiology~and current medications noted below. Continue current treatment with the changes noted in the dictated addendum note Assessment: Vital Signs: Vital Signs Date Time Temp Pulse Resp B/P (MAP) Pulse Ox O2 Delivery O2 Flow Rate FiO2 01/16/17 16:15 97.5 68 19 143/68 (93) 93 01/13/17 17:15 Room Air 01/10/17 23:30 93.0 I&O Intake and Output 01/17/17 07:00 Intake Total 1120 ml Balance 1120 ml Intake Oral 1120 ml # Bowel Movements 1 Current Medications: Meds: Current Medications Sodium Chloride 1,000 ml @ 100 mls/hr 1X ONCE IV ; Start 01/10/17 at 19:30; Stop 01/10/17 at 19:30; Status DC Alprazolam (Xanax) 0.5 mg BID PO Last administered on 01/16/17 20:01; Start at 23:00 Donepezil HCl (Aricept) 10 mg HS PO Last administered on 01/16/17 19:59; Start 01/10/17 at 23:00 Citalopram Hydrobromide (CeleXA) 40 mg DAILY PO Last administered on 01/14/17 08:57; Start 01/11/17 at 09:00; Stop 01/14/17 at 19:16; Status DC Acetaminophen (Tylenol) 650 mg PRN Q6HRS PRN PO PAIN / TEMP; Start 01/10/17 at 22:45; Status Cancel Multi-Ingredient Ointment (Analgesic [place]) 1 evie PRN QID PRN TP MUSCLE PAIN; Start 01/10/17 at 22:45 Al Hydroxide/Mg Hydroxide (Mylanta Plus Xs) 15 ml PRN AFTMEALHC PRN PO DYSPEPSIA; Start 01/10/17 at 22:45 Magnesium Hydroxide (Milk Of Magnesia) 2,400 mg PRN QHS PRN PO CONSTIPATION; Start 01/10/17 at 22:45; Stop 01/11/17 at 10:44; Status DC Info (FLU VACCINE per PROTOCOL) 1 ea PRN 1X PRN MC PER PROTOCOL; Start at 23:15; Status UNV Influenza Virus Vaccine Quadrival (Fluarix Quad [id number] Syringe) 0.5 ml ONCE ONCE VAX IM Last administered on 01/11/17 09:51; Start 01/11/17 at 09:00; Stop 01/11/17 at 09:01; Status DC Acetaminophen (Tylenol) 650 mg PRN Q4HRS PRN PO PAIN / TEMP; Start 01/11/17 at 08:00 Albuterol Sulfate (Ventolin) 2.5 mg PRN TID PRN NEB SHORTNESS OF BREATH; Start 01/11/17 at 08:00 Aspirin (Children'S Aspirin) 81 mg DAILY PO Last administered on 01/16/17 09: 20; Start 01/11/17 at 09:00 Bisacodyl (Dulcolax Supp) 10 mg PRN DAILY PRN RC CONSTIPATION; Start 01/11/17 at 08:00 Clopidogrel Bisulfate (Plavix) 75 mg DAILY PO Last administered on 01/16/17 09 :20; Start 01/11/17 at 09:00 Levothyroxine Sodium (Synthroid) 88 mcg DAILYAC PO Last administered on 09:20; Start 01/12/17 at 07:30 Magnesium Hydroxide (Milk Of Magnesia) 2,400 mg PRN DAILY PRN PO CONSTIPATION; Start 01/11/17 at 08:00 Polyethylene Glycol (miraLAX) 17 gm PRN DAILY PRN PO CONSTIPATION; Start at 08:00 Tamsulosin HCl (Flomax) 0.4 mg DAILY PO Last administered on 01/16/17 09:19; Start 01/11/17 at 09:00 Guaifenesin/ Codeine Phosphate (Robitussin Ac) 10 ml PRN Q4HRS PRN PO COUGH; Start 01/11/17 at 09:00 Cetirizine HCl (ZyrTEC) 10 mg DAILY PO Last administered on 01/16/17 09:19; Start 01/11/17 at 09:00 Multivitamins/ Calcium (Thera-M Plus) 1 tab DAILY PO Last administered on 09:19; Start 01/11/17 at 09:00 Calamine (Calamine Lotion) 1 evie PRN TID PRN TP ITCHING; Start 01/11/17 at 10: 30; Stop 01/13/17 at 07:12; Status DC Sodium Polystyrene Sulfonate (Kayexalate) 15 gm 1X ONCE PO Last administered on 01/11/17 09:36; Start 01/11/17 at 09:00; Stop 01/11/17 at 09:01; Status DC Quetiapine Fumarate (SEROquel) 25 mg HS PO Last administered on 01/16/17 19:59 ; Start 01/12/17 at 21:00 Calamine (Calamine Lotion) 1 evie PRN TID PRN TP ITCHING; Start 01/13/17 at 07: 12 Citalopram Hydrobromide (CeleXA) 30 mg DAILY PO Last administered on 01/16/17 09:20; Start 01/15/17 at 09:00 Quetiapine Fumarate (SEROquel) 12.5 mg BID@0900,1300 PO Last administered on 15:45; Start 01/15/17 at 09:00; Stop 01/16/17 at 18:29; Status DC Quetiapine Fumarate (SEROquel) 12.5 mg DAILY PO ; Start 01/17/17 at 09:00 Active Scripts Active Reported Donepezil Hcl 10 Mg Tablet 10 Mg PO HS Albuterol Sulfate Neb Soln (Albuterol Sulfate) 2.5 Mg/3 Ml Vial.neb 1 Vial NEB PRN TID PRN Alprazolam 0.5 Mg Tablet 0.5 Mg PO BID Tylenol (Acetaminophen) 325 Mg Tablet 650 Mg PO PRN Q4HRS PRN Plavix (Clopidogrel Bisulfate) 75 Mg Tablet 75 Mg PO DAILY Multivitamins (Multivitamin) 1 Each Tablet 1 Tab PO DAILY Miralax (Polyethylene Glycol 3350) 17 Gm Powd.pack 17 Gm PO PRN DAILY PRN Milk Of Magnesia (Magnesium Hydroxide) 400 Mg/5 Ml Oral.susp 30 Ml PO PRN DAILY PRN Loratadine 10 Mg Tablet 10 Mg PO DAILY Lisinopril 5 Mg Tablet 5 Mg PO DAILY Levothyroxine Sodium 88 Mcg Tablet 88 Mcg PO DAILYAC Guaifenesin Ac Cough Syrup (Guaifenesin/Codeine Phosphate) 473 Ml Liquid 10 Ml PO PRN Q4HRS PRN Flomax (Tamsulosin Hcl) 0.4 Mg Cap.er.24h 0.4 Mg PO DAILY Bisacodyl 10 Mg Supp.rect 10 Mg RC PRN DAILY PRN Citalopram Hbr (Citalopram Hydrobromide) 40 Mg Tablet 40 Mg PO DAILY Caladryl 1%-8% Lotion (Pramoxine HCl/Calamine) 177 Ml Lotion 1 Evie TP PRN TID PRN Aspirin 81 Mg Tab.chew 81 Mg PO DAILY Diagnosis: Problems: (1) Anxiety disorder (2) Bipolar affective, mixed (3) Impulse control disorder KATARZYNA GRANT MD Jan 16, 2017 21:08
[2017-01-17 06:32] VITALS: BP 128/72
[2017-01-17] MEDS: CLOPIDOGREL BISULFATE 75 MG TABLET PO SCH (09:55)
[2017-01-17] MEDS: CITALOPRAM 10 MG TABLET. PO SCH (09:55)
[2017-01-17] MEDS: LEVOTHYROXINE 88 MCG TABLET PO SCH (09:55)
[2017-01-17] MEDS: MULTIVITAMIN with MINERAL TABLET. PO SCH (09:56)
[2017-01-17] MEDS: TAMSULOSIN 0.4 MG CAP.ER.24H. PO SCH (09:56)
[2017-01-17] MEDS: CETIRIZINE HCL 10 MG TABLET PO SCH (09:56)
[2017-01-17] MEDS: ASPIRIN 81 MG TAB.CHEW PO SCH (09:56)
[2017-01-17] MEDS: ALPRAZolam 0.5 MG TABLET PO SCH ×2 (09:58→20:35)
[2017-01-17] MEDS: QUEtiapine 25 MG TABLET. PO SCH ×2 (09:58→20:35)
[2017-01-17 16:23] VITALS: BP 110/65
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
[2017-01-17] MEDS: DONEPEZIL HCL 10 MG TABLET PO SCH (20:35)
--- NOTE | 2017-01-17 21:05 | PDOC ---
Exam Ric Demential Exam: Ric Note: Please also refer to the separate dictated note~for this date of service dictated separately.~Patient seen individually. Discussed the patient with Nursing staff reviewed the chart.~Reviewed interim history and current functioning. Reviewed vital signs,~Labs/ Radiology~and current medications noted below. Continue current treatment with the changes noted in the dictated addendum note Assessment: Vital Signs: Vital Signs Date Time Temp Pulse Resp B/P (MAP) Pulse Ox O2 Delivery O2 Flow Rate FiO2 01/17/17 16:23 97.2 69 18 110/65 (80) 95 01/13/17 17:15 Room Air I&O Intake and Output 01/18/17 07:00 Intake Total 840 ml Balance 840 ml Intake Oral 840 ml Current Medications: Meds: Current Medications Sodium Chloride 1,000 ml @ 100 mls/hr 1X ONCE IV ; Start 01/10/17 at 19:30; Stop 01/10/17 at 19:30; Status DC Alprazolam (Xanax) 0.5 mg BID PO Last administered on 01/17/17 20:35; Start at 23:00 Donepezil HCl (Aricept) 10 mg HS PO Last administered on 01/17/17 20:35; Start 01/10/17 at 23:00 Citalopram Hydrobromide (CeleXA) 40 mg DAILY PO Last administered on 01/14/17 08:57; Start 01/11/17 at 09:00; Stop 01/14/17 at 19:16; Status DC Acetaminophen (Tylenol) 650 mg PRN Q6HRS PRN PO PAIN / TEMP; Start 01/10/17 at 22:45; Status Cancel Multi-Ingredient Ointment (Analgesic [place]) 1 evie PRN QID PRN TP MUSCLE PAIN; Start 01/10/17 at 22:45 Al Hydroxide/Mg Hydroxide (Mylanta Plus Xs) 15 ml PRN AFTMEALHC PRN PO DYSPEPSIA; Start 01/10/17 at 22:45 Magnesium Hydroxide (Milk Of Magnesia) 2,400 mg PRN QHS PRN PO CONSTIPATION; Start 01/10/17 at 22:45; Stop 01/11/17 at 10:44; Status DC Info (FLU VACCINE per PROTOCOL) 1 ea PRN 1X PRN MC PER PROTOCOL; Start at 23:15; Status UNV Influenza Virus Vaccine Quadrival (Fluarix Quad 6669-0928 Syringe) 0.5 ml ONCE ONCE VAX IM Last administered on 01/11/17 09:51; Start 01/11/17 at 09:00; Stop 01/11/17 at 09:01; Status DC Acetaminophen (Tylenol) 650 mg PRN Q4HRS PRN PO PAIN / TEMP; Start 01/11/17 at 08:00 Albuterol Sulfate (Ventolin) 2.5 mg PRN TID PRN NEB SHORTNESS OF BREATH; Start 01/11/17 at 08:00 Aspirin (Children'S Aspirin) 81 mg DAILY PO Last administered on 01/17/17 09: 56; Start 01/11/17 at 09:00 Bisacodyl (Dulcolax Supp) 10 mg PRN DAILY PRN RC CONSTIPATION; Start 01/11/17 at 08:00 Clopidogrel Bisulfate (Plavix) 75 mg DAILY PO Last administered on 01/17/17 09 :55; Start 01/11/17 at 09:00 Levothyroxine Sodium (Synthroid) 88 mcg DAILYAC PO Last administered on 09:55; Start 01/12/17 at 07:30 Magnesium Hydroxide (Milk Of Magnesia) 2,400 mg PRN DAILY PRN PO CONSTIPATION; Start 01/11/17 at 08:00 Polyethylene Glycol (miraLAX) 17 gm PRN DAILY PRN PO CONSTIPATION; Start at 08:00 Tamsulosin HCl (Flomax) 0.4 mg DAILY PO Last administered on 01/17/17 09:56; Start 01/11/17 at 09:00 Guaifenesin/ Codeine Phosphate (Robitussin Ac) 10 ml PRN Q4HRS PRN PO COUGH; Start 01/11/17 at 09:00 Cetirizine HCl (ZyrTEC) 10 mg DAILY PO Last administered on 01/17/17 09:56; Start 01/11/17 at 09:00 Multivitamins/ Calcium (Thera-M Plus) 1 tab DAILY PO Last administered on 09:56; Start 01/11/17 at 09:00 Calamine (Calamine Lotion) 1 evie PRN TID PRN TP ITCHING; Start 01/11/17 at 10: 30; Stop 01/13/17 at 07:12; Status DC Sodium Polystyrene Sulfonate (Kayexalate) 15 gm 1X ONCE PO Last administered on 01/11/17 09:36; Start 01/11/17 at 09:00; Stop 01/11/17 at 09:01; Status DC Quetiapine Fumarate (SEROquel) 25 mg HS PO Last administered on 01/17/17 20:35 ; Start 01/12/17 at 21:00 Calamine (Calamine Lotion) 1 evie PRN TID PRN TP ITCHING; Start 01/13/17 at 07: 12 Citalopram Hydrobromide (CeleXA) 30 mg DAILY PO Last administered on 01/17/17 09:55; Start 01/15/17 at 09:00 Quetiapine Fumarate (SEROquel) 12.5 mg BID@0900,1300 PO Last administered on 15:45; Start 01/15/17 at 09:00; Stop 01/16/17 at 18:29; Status DC Quetiapine Fumarate (SEROquel) 12.5 mg DAILY PO Last administered on 01/17/17 09:58; Start 01/17/17 at 09:00 Active Scripts Active Reported Donepezil Hcl 10 Mg Tablet 10 Mg PO HS Albuterol Sulfate Neb Soln (Albuterol Sulfate) 2.5 Mg/3 Ml Vial.neb 1 Vial NEB PRN TID PRN Alprazolam 0.5 Mg Tablet 0.5 Mg PO BID Tylenol (Acetaminophen) 325 Mg Tablet 650 Mg PO PRN Q4HRS PRN Plavix (Clopidogrel Bisulfate) 75 Mg Tablet 75 Mg PO DAILY Multivitamins (Multivitamin) 1 Each Tablet 1 Tab PO DAILY Miralax (Polyethylene Glycol 3350) 17 Gm Powd.pack 17 Gm PO PRN DAILY PRN Milk Of Magnesia (Magnesium Hydroxide) 400 Mg/5 Ml Oral.susp 30 Ml PO PRN DAILY PRN Loratadine 10 Mg Tablet 10 Mg PO DAILY Lisinopril 5 Mg Tablet 5 Mg PO DAILY Levothyroxine Sodium 88 Mcg Tablet 88 Mcg PO DAILYAC Guaifenesin Ac Cough Syrup (Guaifenesin/Codeine Phosphate) 473 Ml Liquid 10 Ml PO PRN Q4HRS PRN Flomax (Tamsulosin Hcl) 0.4 Mg Cap.er.24h 0.4 Mg PO DAILY Bisacodyl 10 Mg Supp.rect 10 Mg RC PRN DAILY PRN Citalopram Hbr (Citalopram Hydrobromide) 40 Mg Tablet 40 Mg PO DAILY Caladryl 1%-8% Lotion (Pramoxine HCl/Calamine) 177 Ml Lotion 1 Evie TP PRN TID PRN Aspirin 81 Mg Tab.chew 81 Mg PO DAILY Diagnosis: Problems: (1) Chronic kidney disease (2) Anxiety disorder (3) Bipolar affective, mixed (4) Impulse control disorder KATARZYNA GRANT MD Jan 17, 2017 21:05
[2017-01-18] MEDS: LEVOTHYROXINE 88 MCG TABLET PO SCH (05:54)
[2017-01-18 06:06] VITALS: BP 110/66
--- NOTE | 2017-01-18 08:39 | PN ---
DATE: 01/16/2017 PSYCHIATRIC PROGRESS NOTE This is a late entry 01/16/2017, covers elements not covered in my initial note of 01/16/2017. SUBJECTIVE: Met with the patient in the evening of 01/16/2017. The patient remains somewhat depressed, withdrawn. He gets irritable around others, spends much time in his room and that is where I met with him. REVIEW OF SYSTEMS: Positive for some tiredness. No CV, , pulmonary, eye, ENT system symptoms on review. MENTAL STATUS EXAM: Oriented to himself and situation. Speech has some latency, coherent. Abstraction fair, computation impaired, language function intact, attention span short. Mood and affect somewhat dysphoric, less labile, less irritable. LABORATORY DATA: Reviewed. IMPRESSION: Unchanged from initial note. 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 PLAN: The patient has been somewhat sedated and he is currently on Seroquel 12.5 mg at 9:00 a.m. and 1 p.m. and 25 mg at bedtime. We will stop the 1:00 p.m. dosage. Continue the rest and maintain Celexa 40 mg a day, Xanax 0.5 mg b.i.d., Aricept 10 mg a day. Adjust further as clinically indicated. Consider Depakote as a mood stabilizer. Reviewed drug interactions. Risk/benefit ratio favors no further change at this time. KATARZYNA GRANT MD DR: SAMANTHA/luis miguel JOB#: [id number] / [id number]
[2017-01-18] MEDS: CITALOPRAM 10 MG TABLET. PO SCH (08:44)
[2017-01-18] MEDS: CLOPIDOGREL BISULFATE 75 MG TABLET PO SCH (08:44)
[2017-01-18] MEDS: CETIRIZINE HCL 10 MG TABLET PO SCH (08:44)
[2017-01-18] MEDS: ASPIRIN 81 MG TAB.CHEW PO SCH (08:44)
[2017-01-18] MEDS: QUEtiapine 25 MG TABLET. PO SCH ×2 (08:45→19:59)
[2017-01-18] MEDS: MULTIVITAMIN with MINERAL TABLET. PO SCH (08:45)
[2017-01-18] MEDS: TAMSULOSIN 0.4 MG CAP.ER.24H. PO SCH (08:45)
[2017-01-18] MEDS: ALPRAZolam 0.5 MG TABLET PO SCH ×2 (08:46→20:01)
[2017-01-18 16:32] VITALS: BP 121/64
[2017-01-18] MEDS: DONEPEZIL HCL 10 MG TABLET PO SCH (19:59)
--- NOTE | 2017-01-18 20:57 | PDOC ---
Exam Ric Demential Exam: Ric Note: Please also refer to the separate dictated note~for this date of service dictated separately.~Patient seen individually. Discussed the patient with Nursing staff reviewed the chart.~Reviewed interim history and current functioning. Reviewed vital signs,~Labs/ Radiology~and current medications noted below. Continue current treatment with the changes noted in the dictated addendum note Assessment: Vital Signs: Vital Signs Date Time Temp Pulse Resp B/P (MAP) Pulse Ox O2 Delivery O2 Flow Rate FiO2 01/18/17 16:32 98.3 74 20 121/64 (83) 94 Room Air I&O Intake and Output 01/19/17 06:59 Intake Total 1200 ml Balance 1200 ml Intake Oral 1200 ml # Voids 1 # Bowel Movements 2 Current Medications: Meds: Current Medications Sodium Chloride 1,000 ml @ 100 mls/hr 1X ONCE IV ; Start 01/10/17 at 19:30; Stop 01/10/17 at 19:30; Status DC Alprazolam (Xanax) 0.5 mg BID PO Last administered on 01/18/17 20:01; Start at 23:00 Donepezil HCl (Aricept) 10 mg HS PO Last administered on 01/18/17 19:59; Start 01/10/17 at 23:00 Citalopram Hydrobromide (CeleXA) 40 mg DAILY PO Last administered on 01/14/17 08:57; Start 01/11/17 at 09:00; Stop 01/14/17 at 19:16; Status DC Acetaminophen (Tylenol) 650 mg PRN Q6HRS PRN PO PAIN / TEMP; Start 01/10/17 at 22:45; Status Cancel Multi-Ingredient Ointment (Analgesic [place]) 1 evie PRN QID PRN TP MUSCLE PAIN; Start 01/10/17 at 22:45 Al Hydroxide/Mg Hydroxide (Mylanta Plus Xs) 15 ml PRN AFTMEALHC PRN PO DYSPEPSIA; Start 01/10/17 at 22:45 Magnesium Hydroxide (Milk Of Magnesia) 2,400 mg PRN QHS PRN PO CONSTIPATION; Start 01/10/17 at 22:45; Stop 01/11/17 at 10:44; Status DC Info (FLU VACCINE per PROTOCOL) 1 ea PRN 1X PRN MC PER PROTOCOL; Start at 23:15; Status UNV Influenza Virus Vaccine Quadrival (Fluarix Quad 1180-9515 Syringe) 0.5 ml ONCE ONCE VAX IM Last administered on 01/11/17 09:51; Start 01/11/17 at 09:00; Stop 01/11/17 at 09:01; Status DC Acetaminophen (Tylenol) 650 mg PRN Q4HRS PRN PO PAIN / TEMP; Start 01/11/17 at 08:00 Albuterol Sulfate (Ventolin) 2.5 mg PRN TID PRN NEB SHORTNESS OF BREATH; Start 01/11/17 at 08:00 Aspirin (Children'S Aspirin) 81 mg DAILY PO Last administered on 01/18/17 08: 44; Start 01/11/17 at 09:00 Bisacodyl (Dulcolax Supp) 10 mg PRN DAILY PRN RC CONSTIPATION; Start 01/11/17 at 08:00 Clopidogrel Bisulfate (Plavix) 75 mg DAILY PO Last administered on 01/18/17 08 :44; Start 01/11/17 at 09:00 Levothyroxine Sodium (Synthroid) 88 mcg DAILYAC PO Last administered on 05:54; Start 01/12/17 at 07:30 Magnesium Hydroxide (Milk Of Magnesia) 2,400 mg PRN DAILY PRN PO CONSTIPATION; Start 01/11/17 at 08:00 Polyethylene Glycol (miraLAX) 17 gm PRN DAILY PRN PO CONSTIPATION; Start at 08:00 Tamsulosin HCl (Flomax) 0.4 mg DAILY PO Last administered on 01/18/17 08:45; Start 01/11/17 at 09:00 Guaifenesin/ Codeine Phosphate (Robitussin Ac) 10 ml PRN Q4HRS PRN PO COUGH; Start 01/11/17 at 09:00 Cetirizine HCl (ZyrTEC) 10 mg DAILY PO Last administered on 01/18/17 08:44; Start 01/11/17 at 09:00 Multivitamins/ Calcium (Thera-M Plus) 1 tab DAILY PO Last administered on 08:45; Start 01/11/17 at 09:00 Calamine (Calamine Lotion) 1 evie PRN TID PRN TP ITCHING; Start 01/11/17 at 10: 30; Stop 01/13/17 at 07:12; Status DC Sodium Polystyrene Sulfonate (Kayexalate) 15 gm 1X ONCE PO Last administered on 01/11/17 09:36; Start 01/11/17 at 09:00; Stop 01/11/17 at 09:01; Status DC Quetiapine Fumarate (SEROquel) 25 mg HS PO Last administered on 01/18/17 19:59 ; Start 01/12/17 at 21:00 Calamine (Calamine Lotion) 1 evie PRN TID PRN TP ITCHING; Start 01/13/17 at 07: 12 Citalopram Hydrobromide (CeleXA) 30 mg DAILY PO Last administered on 01/18/17 08:44; Start 01/15/17 at 09:00 Quetiapine Fumarate (SEROquel) 12.5 mg BID@0900,1300 PO Last administered on 15:45; Start 01/15/17 at 09:00; Stop 01/16/17 at 18:29; Status DC Quetiapine Fumarate (SEROquel) 12.5 mg DAILY PO Last administered on 01/18/17 08:45; Start 01/17/17 at 09:00 Active Scripts Active Reported Donepezil Hcl 10 Mg Tablet 10 Mg PO HS Albuterol Sulfate Neb Soln (Albuterol Sulfate) 2.5 Mg/3 Ml Vial.neb 1 Vial NEB PRN TID PRN Alprazolam 0.5 Mg Tablet 0.5 Mg PO BID Tylenol (Acetaminophen) 325 Mg Tablet 650 Mg PO PRN Q4HRS PRN Plavix (Clopidogrel Bisulfate) 75 Mg Tablet 75 Mg PO DAILY Multivitamins (Multivitamin) 1 Each Tablet 1 Tab PO DAILY Miralax (Polyethylene Glycol 3350) 17 Gm Powd.pack 17 Gm PO PRN DAILY PRN Milk Of Magnesia (Magnesium Hydroxide) 400 Mg/5 Ml Oral.susp 30 Ml PO PRN DAILY PRN Loratadine 10 Mg Tablet 10 Mg PO DAILY Lisinopril 5 Mg Tablet 5 Mg PO DAILY Levothyroxine Sodium 88 Mcg Tablet 88 Mcg PO DAILYAC Guaifenesin Ac Cough Syrup (Guaifenesin/Codeine Phosphate) 473 Ml Liquid 10 Ml PO PRN Q4HRS PRN Flomax (Tamsulosin Hcl) 0.4 Mg Cap.er.24h 0.4 Mg PO DAILY Bisacodyl 10 Mg Supp.rect 10 Mg RC PRN DAILY PRN Citalopram Hbr (Citalopram Hydrobromide) 40 Mg Tablet 40 Mg PO DAILY Caladryl 1%-8% Lotion (Pramoxine HCl/Calamine) 177 Ml Lotion 1 Evie TP PRN TID PRN Aspirin 81 Mg Tab.chew 81 Mg PO DAILY Diagnosis: Problems: (1) Anxiety disorder (2) Bipolar affective, mixed (3) Impulse control disorder KATARZYNA GRANT MD Jan 18, 2017 20:57
[2017-01-19] MEDS: LEVOTHYROXINE 88 MCG TABLET PO SCH (05:05)
[2017-01-19 06:26] VITALS: BP 104/63
[2017-01-19 08:03] LABS: BASO # 0.1 x10^3/uL (0.0-0.2); BASO % 1 % (0-3); EOS # 0.5 x10^3/uL (0.0-0.7); EOS % 3 % (0-3); HEMATOCRIT 45.5 % (39.0-53.0); HEMOGLOBIN 15.6 g/dL (13.0-17.5); LYMPH # 4.6 x10^3/uL (1.0-4.8); LYMPH % 35 % (24-48); MEAN CORPUSCULAR HEMOGLOBIN 31 pg (25-35); MEAN CORPUSCULAR HGB CONC 34 g/dL (31-37); MEAN CORPUSCULAR VOLUME 89 fL (79-100); MONO # 0.9 x10^3/uL (0.0-1.1); MONO % 7 % (0-9); NEUT # 7.1 x10^3uL (1.8-7.7); NEUT % 54 % (31-73); PLATELET COUNT 236 x10^3/uL (140-400); RED BLOOD COUNT 5.11 x10^6/uL (4.30-5.70); RED CELL DISTRIBUTION WIDTH 15.7 % (11.5-14.5); WHITE BLOOD COUNT 13.2 x10^3/uL (4.0-11.0)
[2017-01-19 08:21] LABS: ALBUMIN 3.7 g/dL (3.4-5.0); CALCIUM 9.1 mg/dL (8.5-10.1); CREATININE 2.1 mg/dL (0.7-1.3); GFR 30.3; POTASSIUM 4.2 mmol/L (3.5-5.1); TOTAL BILIRUBIN 0.3 mg/dL (0.2-1.0); TOTAL PROTEIN 7.4 g/dL (6.4-8.2)
[2017-01-19] MEDS: CLOPIDOGREL BISULFATE 75 MG TABLET PO SCH (09:18)
[2017-01-19] MEDS: CITALOPRAM 10 MG TABLET. PO SCH (09:18)
[2017-01-19] MEDS: MULTIVITAMIN with MINERAL TABLET. PO SCH (09:18)
[2017-01-19] MEDS: TAMSULOSIN 0.4 MG CAP.ER.24H. PO SCH (09:19)
[2017-01-19] MEDS: QUEtiapine 25 MG TABLET. PO SCH ×2 (09:19→20:26)
[2017-01-19] MEDS: ASPIRIN 81 MG TAB.CHEW PO SCH (09:19)
[2017-01-19] MEDS: ALPRAZolam 0.5 MG TABLET PO SCH ×2 (09:19→20:25)
[2017-01-19] MEDS: CETIRIZINE HCL 10 MG TABLET PO SCH (09:19)
--- NOTE | 2017-01-19 09:30 | PN ---
DATE: 01/17/2017 PSYCHIATRIC PROGRESS NOTE This late entry of 01/17/2017 covers elements not covered in my initial note of 01/17/2017. SUBJECTIVE: I met with the patient the evening of 01/17/2017 in his room. He has been withdrawn, spends much time in his room, reasonably oriented. No CV, , pulmonary, eye, ENT system symptoms on review. Complains of being tired. MENTAL STATUS EXAM: Reasonably oriented. Speech has some latency, coherent. Abstraction fair, computation impaired, language function intact, attention span short. Mood and affect despite being withdrawn is slightly better. LABORATORY DATA: Reviewed. IMPRESSION: Unchanged from initial note. PLAN: Continue current psychotropics, Celexa, Xanax, Aricept, Seroquel. Reviewed drug interactions. Risk/benefit ratio favors no further change as of now. MAN Lizet GRANT MD DR: SAMANTHA/luis miguel JOB#: [id number] / [id number]
[2017-01-19 13:53] LABS: BACTERIA,URINE 0 /HPF (0-FEW); BILIRUBIN,URINE NEG (NEG); CLARITY,URINE CLEAR; COLOR,URINE YELLOW; GLUCOSE,URINE NEG (NEG); NITRITE,URINE NEG (NEG); RBC,URINE RARE /HPF (0-2); SQUAMOUS EPITHELIAL CELL,UR OCC /LPF; UROBILINOGEN,URINE 0.2 mg/dL (0.2 mg/dL); WBC,URINE OCC /HPF (0-4)
[2017-01-19 16:40] VITALS: BP 155/81
[2017-01-19] MEDS: CHOLECALCIFEROL (VITAMIN D3) 50,000 UNIT CAPSULE PO SCH (17:20)
[2017-01-19] MEDS: DONEPEZIL HCL 10 MG TABLET PO SCH (20:26)
--- NOTE | 2017-01-19 22:28 | PDOC ---
Exam Ric Demential Exam: Ric Note: Please also refer to the separate dictated note~for this date of service dictated separately.~Patient seen individually. Discussed the patient with Nursing staff reviewed the chart.~Reviewed interim history and current functioning. Reviewed vital signs,~Labs/ Radiology~and current medications noted below. Continue current treatment with the changes noted in the dictated addendum note Assessment: Vital Signs: Vital Signs Date Time Temp Pulse Resp B/P (MAP) Pulse Ox O2 Delivery O2 Flow Rate FiO2 01/19/17 16:40 96.5 84 20 155/81 (105) 95 01/18/17 16:32 Room Air I&O Intake and Output 01/20/17 07:00 Intake Total 1320 ml Balance 1320 ml Intake Oral 1320 ml Labs: Laboratory Tests Test 01/19/17 07:40 01/19/17 13:12 White Blood Count 13.2 x10^3/uL (4.0-11.0) H Red Blood Count 5.11 x10^6/uL (4.30-5.70) Hemoglobin 15.6 g/dL (13.0-17.5) Hematocrit 45.5 % (39.0-53.0) Mean Corpuscular Volume 89 fL (79-100) Mean Corpuscular Hemoglobin 31 pg (25-35) Mean Corpuscular Hemoglobin Concent 34 g/dL (31-37) Red Cell Distribution Width 15.7 % (11.5-14.5) H Platelet Count 236 x10^3/uL (140-400) Neutrophils (%) (Auto) 54 % (31-73) Lymphocytes (%) (Auto) 35 % (24-48) Monocytes (%) (Auto) 7 % (0-9) Eosinophils (%) (Auto) 3 % (0-3) Basophils (%) (Auto) 1 % (0-3) Neutrophils # (Auto) 7.1 x10^3uL (1.8-7.7) Lymphocytes # (Auto) 4.6 x10^3/uL (1.0-4.8) Monocytes # (Auto) 0.9 x10^3/uL (0.0-1.1) Eosinophils # (Auto) 0.5 x10^3/uL (0.0-0.7) Basophils # (Auto) 0.1 x10^3/uL (0.0-0.2) Sodium Level 142 mmol/L (136-145) Potassium Level 4.2 mmol/L (3.5-5.1) Chloride Level 106 mmol/L (98-107) Carbon Dioxide Level 24 mmol/L (21-32) Anion Gap 12 (6-14) Blood Urea Nitrogen 35 mg/dL (8-26) H Creatinine 2.1 mg/dL (0.7-1.3) H Estimated GFR (Cockcroft-Gault) 30.3 BUN/Creatinine Ratio 17 (6-20) Glucose Level 109 mg/dL (70-99) H Calcium Level 9.1 mg/dL (8.5-10.1) Total Bilirubin 0.3 mg/dL (0.2-1.0) Aspartate Amino Transferase (AST) 17 U/L (15-37) Alanine Aminotransferase (ALT) 21 U/L (16-63) Alkaline Phosphatase 68 U/L (46-116) Total Protein 7.4 g/dL (6.4-8.2) Albumin 3.7 g/dL (3.4-5.0) Albumin/Globulin Ratio 1.0 (1.0-1.7) Urine Collection Type Unknown Urine Color Yellow Urine Clarity Clear Urine pH 5.5 Urine Specific Sims 1.010 Urine Protein Neg (NEG-TRACE) Urine Glucose (UA) Neg mg/dL (NEG) Urine Ketones (Stick) Neg mg/dL (NEG) Urine Blood Neg (NEG) Urine Nitrite Neg (NEG) Urine Bilirubin Neg (NEG) Urine Urobilinogen Dipstick 0.2 mg/dL (0.2 mg/dL) Urine Leukocyte Esterase Trace (NEG) Urine RBC Rare /HPF (0-2) Urine WBC Occ /HPF (0-4) Urine Squamous Epithelial Cells Occ /LPF Urine Bacteria 0 /HPF (0-FEW) Current Medications: Meds: Current Medications Sodium Chloride 1,000 ml @ 100 mls/hr 1X ONCE IV ; Start 01/10/17 at 19:30; Stop 01/10/17 at 19:30; Status DC Alprazolam (Xanax) 0.5 mg BID PO Last administered on 01/19/17at 20:25; Start at 23:00 Donepezil HCl (Aricept) 10 mg HS PO Last administered on 01/19/17 20:26; Start 01/10/17 at 23:00 Citalopram Hydrobromide (CeleXA) 40 mg DAILY PO Last administered on 01/14/17 08:57; Start 01/11/17 at 09:00; Stop 01/14/17 at 19:16; Status DC Acetaminophen (Tylenol) 650 mg PRN Q6HRS PRN PO PAIN / TEMP; Start 01/10/17 at 22:45; Status Cancel Multi-Ingredient Ointment (Analgesic [place]) 1 evie PRN QID PRN TP MUSCLE PAIN; Start 01/10/17 at 22:45 Al Hydroxide/Mg Hydroxide (Mylanta Plus Xs) 15 ml PRN AFTMEALHC PRN PO DYSPEPSIA; Start 01/10/17 at 22:45 Magnesium Hydroxide (Milk Of Magnesia) 2,400 mg PRN QHS PRN PO CONSTIPATION; Start 01/10/17 at 22:45; Stop 01/11/17 at 10:44; Status DC Info (FLU VACCINE per PROTOCOL) 1 ea PRN 1X PRN MC PER PROTOCOL; Start at 23:15; Status UNV Influenza Virus Vaccine Quadrival (Fluarix Quad [id number] Syringe) 0.5 ml ONCE ONCE VAX IM Last administered on 01/11/17 09:51; Start 01/11/17 at 09:00; Stop 01/11/17 at 09:01; Status DC Acetaminophen (Tylenol) 650 mg PRN Q4HRS PRN PO PAIN / TEMP; Start 01/11/17 at 08:00 Albuterol Sulfate (Ventolin) 2.5 mg PRN TID PRN NEB SHORTNESS OF BREATH; Start 01/11/17 at 08:00 Aspirin (Children'S Aspirin) 81 mg DAILY PO Last administered on 01/19/17 09: 19; Start 01/11/17 at 09:00 Bisacodyl (Dulcolax Supp) 10 mg PRN DAILY PRN RC CONSTIPATION; Start 01/11/17 at 08:00 Clopidogrel Bisulfate (Plavix) 75 mg DAILY PO Last administered on 01/19/17 09 :18; Start 01/11/17 at 09:00 Levothyroxine Sodium (Synthroid) 88 mcg DAILYAC PO Last administered on 05:05; Start 01/12/17 at 07:30 Magnesium Hydroxide (Milk Of Magnesia) 2,400 mg PRN DAILY PRN PO CONSTIPATION; Start 01/11/17 at 08:00 Polyethylene Glycol (miraLAX) 17 gm PRN DAILY PRN PO CONSTIPATION; Start at 08:00 Tamsulosin HCl (Flomax) 0.4 mg DAILY PO Last administered on 01/19/17 09:19; Start 01/11/17 at 09:00 Guaifenesin/ Codeine Phosphate (Robitussin Ac) 10 ml PRN Q4HRS PRN PO COUGH; Start 01/11/17 at 09:00 Cetirizine HCl (ZyrTEC) 10 mg DAILY PO Last administered on 01/19/17 09:19; Start 01/11/17 at 09:00 Multivitamins/ Calcium (Thera-M Plus) 1 tab DAILY PO Last administered on 09:18; Start 01/11/17 at 09:00 Calamine (Calamine Lotion) 1 evie PRN TID PRN TP ITCHING; Start 01/11/17 at 10: 30; Stop 01/13/17 at 07:12; Status DC Sodium Polystyrene Sulfonate (Kayexalate) 15 gm 1X ONCE PO Last administered on 01/11/17 09:36; Start 01/11/17 at 09:00; Stop 01/11/17 at 09:01; Status DC Quetiapine Fumarate (SEROquel) 25 mg HS PO Last administered on 01/19/17 20:26 ; Start 01/12/17 at 21:00 Calamine (Calamine Lotion) 1 evie PRN TID PRN TP ITCHING; Start 01/13/17 at 07: 12 Citalopram Hydrobromide (CeleXA) 30 mg DAILY PO Last administered on 01/19/17 09:18; Start 01/15/17 at 09:00 Quetiapine Fumarate (SEROquel) 12.5 mg BID@0900,1300 PO Last administered on 15:45; Start 01/15/17 at 09:00; Stop 01/16/17 at 18:29; Status DC Quetiapine Fumarate (SEROquel) 12.5 mg DAILY PO Last administered on 01/19/17 09:19; Start 01/17/17 at 09:00 Vitamin D (Vitamin D3) 50,000 unit WEEKLY PO Last administered on 01/19/17 17: 20; Start 01/19/17 at 16:00 Active Scripts Active Reported Donepezil Hcl 10 Mg Tablet 10 Mg PO HS Albuterol Sulfate Neb Soln (Albuterol Sulfate) 2.5 Mg/3 Ml Vial.neb 1 Vial NEB PRN TID PRN Alprazolam 0.5 Mg Tablet 0.5 Mg PO BID Tylenol (Acetaminophen) 325 Mg Tablet 650 Mg PO PRN Q4HRS PRN Plavix (Clopidogrel Bisulfate) 75 Mg Tablet 75 Mg PO DAILY Multivitamins (Multivitamin) 1 Each Tablet 1 Tab PO DAILY Miralax (Polyethylene Glycol 3350) 17 Gm Powd.pack 17 Gm PO PRN DAILY PRN Milk Of Magnesia (Magnesium Hydroxide) 400 Mg/5 Ml Oral.susp 30 Ml PO PRN DAILY PRN Loratadine 10 Mg Tablet 10 Mg PO DAILY Lisinopril 5 Mg Tablet 5 Mg PO DAILY Levothyroxine Sodium 88 Mcg Tablet 88 Mcg PO DAILYAC Guaifenesin Ac Cough Syrup (Guaifenesin/Codeine Phosphate) 473 Ml Liquid 10 Ml PO PRN Q4HRS PRN Flomax (Tamsulosin Hcl) 0.4 Mg Cap.er.24h 0.4 Mg PO DAILY Bisacodyl 10 Mg Supp.rect 10 Mg RC PRN DAILY PRN Citalopram Hbr (Citalopram Hydrobromide) 40 Mg Tablet 40 Mg PO DAILY Caladryl 1%-8% Lotion (Pramoxine HCl/Calamine) 177 Ml Lotion 1 Evie TP PRN TID PRN Aspirin 81 Mg Tab.chew 81 Mg PO DAILY Diagnosis: Problems: (1) Anxiety disorder (2) Bipolar affective, mixed (3) Impulse control disorder KATARZYNA GRANT MD Jan 19, 2017 22:28
[2017-01-20] MEDS: LEVOTHYROXINE 88 MCG TABLET PO SCH (05:31)
[2017-01-20 06:15] VITALS: BP 113/67
[2017-01-20] MEDS: CITALOPRAM 10 MG TABLET. PO SCH (08:05)
[2017-01-20] MEDS: TAMSULOSIN 0.4 MG CAP.ER.24H. PO SCH (08:05)
[2017-01-20] MEDS: ASPIRIN 81 MG TAB.CHEW PO SCH (08:05)
[2017-01-20] MEDS: CLOPIDOGREL BISULFATE 75 MG TABLET PO SCH (08:05)
[2017-01-20] MEDS: CETIRIZINE HCL 10 MG TABLET PO SCH (08:05)
[2017-01-20] MEDS: ALPRAZolam 0.5 MG TABLET PO SCH ×2 (08:05→20:50)
[2017-01-20] MEDS: QUEtiapine 25 MG TABLET. PO SCH ×2 (08:06→20:50)
[2017-01-20] MEDS: MULTIVITAMIN with MINERAL TABLET. PO SCH (08:06)
--- NOTE | 2017-01-20 09:45 | RAD ---
AP chest. History: Cough, congestion AP view was taken of the chest. There is lordotic positioning. PA and lateral views would be of benefit. There is blunting of the left costophrenic angle from pleural thickening or small left effusion. There is no old study for comparison. There are no confluent areas of infiltrate. Impression: 1. Slight blunting of left costophrenic angle. 2. No confluent areas of infiltrate.
--- NOTE | 2017-01-20 11:00 | PN ---
DATE: 01/18/2017 PSYCHIATRIC PROGRESS NOTE This is a late entry, date of service 01/18/2017, covers elements not covered in my initial note 01/18/2017. SUBJECTIVE: I met with the patient individually evening of 01/18/2017 and staffed at treatment team meeting morning of 01/18/2017 at length. Reviewed the patient's history of paranoia and he has written off both his adult children from his will and pointed his neighbor as the DPOA. I addressed this with him at some length the evening of 01/18/2017 individually in his room. He states his son has been in assisted and he has problem with alcohol and that is the reason. He did not want to give anything to his son. His reportedly is a health care legal assistant and he was making rather sarcastic remarks against her. I think she knows more than the energy attorney she works for, but "my energy attorney is much smarter." It was not entirely clear why he had written his daughter off his will. He talked about wanting to be buried on his land and that none of his family could get to any of his assets for at least 25 years after he was gone. Apparently, the is looking into legal options herself, but the patient is fairly oriented, understands what he is doing, but not entirely clear why he has made the decision, but perhaps that something that is more personal to him. REVIEW OF SYSTEMS: Positive for some tiredness. No CV, , pulmonary, eye, ENT system symptoms on review. MENTAL STATUS EXAM: Reasonably oriented. Speech is coherent, talked about not liking nectar thick liquids. Abstraction fair, computation impaired, language function intact, attention span short. Mood and affect somewhat withdrawn. LABORATORY DATA: Reviewed. IMPRESSION: Major depressive disorder with possible psychotic features; anxiety disorder, unspecified. PLAN: Continue current psychotropics, Celexa, Xanax, , Seroquel. Nursing staff will explore further along with social service staff about psychotic symptoms and if these are evident, not responding to Seroquel, we may change to Risperdal. Reviewed drug interactions at length. Risk/benefit ratio favors no further change. KATARZYNA GRANT MD DR: SAMANTHA/luis miguel JOB#: [id number] / [id number]
[2017-01-20 17:21] VITALS: BP 108/75
[2017-01-20] MEDS: DONEPEZIL HCL 10 MG TABLET PO SCH (20:51)
--- NOTE | 2017-01-20 23:12 | PDOC ---
Exam Ric Demential Exam: Ric Note: Please also refer to the separate dictated note~for this date of service dictated separately.~Patient seen individually. Discussed the patient with Nursing staff reviewed the chart.~Reviewed interim history and current functioning. Reviewed vital signs,~Labs/ Radiology~and current medications noted below. Continue current treatment with the changes noted in the dictated addendum note Assessment: Vital Signs: Vital Signs Date Time Temp Pulse Resp B/P (MAP) Pulse Ox O2 Delivery O2 Flow Rate FiO2 01/20/17 17:21 97.3 65 18 108/75 (86) 93 01/18/17 16:32 Room Air I&O Intake and Output 01/21/17 07:00 Intake Total 1080 ml Balance 1080 ml Intake Oral 1080 ml Current Medications: Meds: Current Medications Sodium Chloride 1,000 ml @ 100 mls/hr 1X ONCE IV ; Start 01/10/17 at 19:30; Stop 01/10/17 at 19:30; Status DC Alprazolam (Xanax) 0.5 mg BID PO Last administered on 01/20/17 08:05; Start at 23:00; Stop 01/20/17 at 12:46; Status DC Donepezil HCl (Aricept) 10 mg HS PO Last administered on 01/20/17 20:51; Start 01/10/17 at 23:00 Citalopram Hydrobromide (CeleXA) 40 mg DAILY PO Last administered on 01/14/17 08:57; Start 01/11/17 at 09:00; Stop 01/14/17 at 19:16; Status DC Acetaminophen (Tylenol) 650 mg PRN Q6HRS PRN PO PAIN / TEMP; Start 01/10/17 at 22:45; Status Cancel Multi-Ingredient Ointment (Analgesic [place]) 1 evie PRN QID PRN TP MUSCLE PAIN; Start 01/10/17 at 22:45 Al Hydroxide/Mg Hydroxide (Mylanta Plus Xs) 15 ml PRN AFTMEALHC PRN PO DYSPEPSIA; Start 01/10/17 at 22:45 Magnesium Hydroxide (Milk Of Magnesia) 2,400 mg PRN QHS PRN PO CONSTIPATION; Start 01/10/17 at 22:45; Stop 01/11/17 at 10:44; Status DC Info (FLU VACCINE per PROTOCOL) 1 ea PRN 1X PRN MC PER PROTOCOL; Start at 23:15; Status UNV Influenza Virus Vaccine Quadrival (Fluarix Quad 3426-9101 Syringe) 0.5 ml ONCE ONCE VAX IM Last administered on 01/11/17 09:51; Start 01/11/17 at 09:00; Stop 01/11/17 at 09:01; Status DC Acetaminophen (Tylenol) 650 mg PRN Q4HRS PRN PO PAIN / TEMP; Start 01/11/17 at 08:00 Albuterol Sulfate (Ventolin) 2.5 mg PRN TID PRN NEB SHORTNESS OF BREATH; Start 01/11/17 at 08:00 Aspirin (Children'S Aspirin) 81 mg DAILY PO Last administered on 01/20/17 08: 05; Start 01/11/17 at 09:00 Bisacodyl (Dulcolax Supp) 10 mg PRN DAILY PRN RC CONSTIPATION; Start 01/11/17 at 08:00 Clopidogrel Bisulfate (Plavix) 75 mg DAILY PO Last administered on 01/20/17 08 :05; Start 01/11/17 at 09:00 Levothyroxine Sodium (Synthroid) 88 mcg DAILYAC PO Last administered on 05:31; Start 01/12/17 at 07:30 Magnesium Hydroxide (Milk Of Magnesia) 2,400 mg PRN DAILY PRN PO CONSTIPATION; Start 01/11/17 at 08:00 Polyethylene Glycol (miraLAX) 17 gm PRN DAILY PRN PO CONSTIPATION; Start at 08:00 Tamsulosin HCl (Flomax) 0.4 mg DAILY PO Last administered on 01/20/17 08:05; Start 01/11/17 at 09:00 Guaifenesin/ Codeine Phosphate (Robitussin Ac) 10 ml PRN Q4HRS PRN PO COUGH; Start 01/11/17 at 09:00 Cetirizine HCl (ZyrTEC) 10 mg DAILY PO Last administered on 01/20/17 08:05; Start 01/11/17 at 09:00 Multivitamins/ Calcium (Thera-M Plus) 1 tab DAILY PO Last administered on 08:06; Start 01/11/17 at 09:00 Calamine (Calamine Lotion) 1 evie PRN TID PRN TP ITCHING; Start 01/11/17 at 10: 30; Stop 01/13/17 at 07:12; Status DC Sodium Polystyrene Sulfonate (Kayexalate) 15 gm 1X ONCE PO Last administered on 01/11/17 09:36; Start 01/11/17 at 09:00; Stop 01/11/17 at 09:01; Status DC Quetiapine Fumarate (SEROquel) 25 mg HS PO Last administered on 01/20/17 20:50 ; Start 01/12/17 at 21:00 Calamine (Calamine Lotion) 1 evie PRN TID PRN TP ITCHING; Start 01/13/17 at 07: 12 Citalopram Hydrobromide (CeleXA) 30 mg DAILY PO Last administered on 01/20/17 08:05; Start 01/15/17 at 09:00 Quetiapine Fumarate (SEROquel) 12.5 mg BID@0900,1300 PO Last administered on 15:45; Start 01/15/17 at 09:00; Stop 01/16/17 at 18:29; Status DC Quetiapine Fumarate (SEROquel) 12.5 mg DAILY PO Last administered on 01/20/17 08:06; Start 01/17/17 at 09:00 Vitamin D (Vitamin D3) 50,000 unit WEEKLY PO Last administered on 01/19/17 17: 20; Start 01/19/17 at 16:00 Alprazolam (Xanax) 0.25 mg BID PO Last administered on 01/20/17 20:50; Start 01/20/17 at 21:00 Active Scripts Active Reported Donepezil Hcl 10 Mg Tablet 10 Mg PO HS Albuterol Sulfate Neb Soln (Albuterol Sulfate) 2.5 Mg/3 Ml Vial.neb 1 Vial NEB PRN TID PRN Alprazolam 0.5 Mg Tablet 0.5 Mg PO BID Tylenol (Acetaminophen) 325 Mg Tablet 650 Mg PO PRN Q4HRS PRN Plavix (Clopidogrel Bisulfate) 75 Mg Tablet 75 Mg PO DAILY Multivitamins (Multivitamin) 1 Each Tablet 1 Tab PO DAILY Miralax (Polyethylene Glycol 3350) 17 Gm Powd.pack 17 Gm PO PRN DAILY PRN Milk Of Magnesia (Magnesium Hydroxide) 400 Mg/5 Ml Oral.susp 30 Ml PO PRN DAILY PRN Loratadine 10 Mg Tablet 10 Mg PO DAILY Lisinopril 5 Mg Tablet 5 Mg PO DAILY Levothyroxine Sodium 88 Mcg Tablet 88 Mcg PO DAILYAC Guaifenesin Ac Cough Syrup (Guaifenesin/Codeine Phosphate) 473 Ml Liquid 10 Ml PO PRN Q4HRS PRN Flomax (Tamsulosin Hcl) 0.4 Mg Cap.er.24h 0.4 Mg PO DAILY Bisacodyl 10 Mg Supp.rect 10 Mg RC PRN DAILY PRN Citalopram Hbr (Citalopram Hydrobromide) 40 Mg Tablet 40 Mg PO DAILY Caladryl 1%-8% Lotion (Pramoxine HCl/Calamine) 177 Ml Lotion 1 Evie TP PRN TID PRN Aspirin 81 Mg Tab.chew 81 Mg PO DAILY Diagnosis: Problems: (1) Anxiety disorder (2) Bipolar affective, mixed (3) Impulse control disorder KATARZYNA GRANT MD Jan 20, 2017 23:11
[2017-01-21 06:24] VITALS: BP 132/72
[2017-01-21] MEDS: CITALOPRAM 10 MG TABLET. PO SCH (09:17)
[2017-01-21] MEDS: TAMSULOSIN 0.4 MG CAP.ER.24H. PO SCH (09:18)
[2017-01-21] MEDS: ASPIRIN 81 MG TAB.CHEW PO SCH (09:18)
[2017-01-21] MEDS: MULTIVITAMIN with MINERAL TABLET. PO SCH (09:18)
[2017-01-21] MEDS: LEVOTHYROXINE 88 MCG TABLET PO SCH (09:18)
[2017-01-21] MEDS: CETIRIZINE HCL 10 MG TABLET PO SCH (09:18)
[2017-01-21] MEDS: CLOPIDOGREL BISULFATE 75 MG TABLET PO SCH (09:19)
[2017-01-21] MEDS: QUEtiapine 25 MG TABLET. PO SCH ×2 (09:19→20:28)
[2017-01-21] MEDS: ALPRAZolam 0.5 MG TABLET PO SCH ×2 (09:21→20:31)
[2017-01-21 16:43] VITALS: BP 107/72
[2017-01-21] MEDS: DONEPEZIL HCL 10 MG TABLET PO SCH (20:29)
--- NOTE | 2017-01-21 21:25 | PDOC ---
Exam Ric Demential Exam: Ric Note: Please also refer to the separate dictated note~for this date of service dictated separately.~Patient seen individually. Discussed the patient with Nursing staff reviewed the chart.~Reviewed interim history and current functioning. Reviewed vital signs,~Labs/ Radiology~and current medications noted below. Continue current treatment with the changes noted in the dictated addendum note Assessment: Vital Signs: Vital Signs Date Time Temp Pulse Resp B/P (MAP) Pulse Ox O2 Delivery O2 Flow Rate FiO2 01/21/17 16:43 97.2 81 20 107/72 (84) 94 01/21/17 06:24 Room Air I&O Intake and Output 01/22/17 07:00 Intake Total 1200 ml Balance 1200 ml Intake Oral 1200 ml Current Medications: Meds: Current Medications Sodium Chloride 1,000 ml @ 100 mls/hr 1X ONCE IV ; Start 01/10/17 at 19:30; Stop 01/10/17 at 19:30; Status DC Alprazolam (Xanax) 0.5 mg BID PO Last administered on 01/20/17 08:05; Start at 23:00; Stop 01/20/17 at 12:46; Status DC Donepezil HCl (Aricept) 10 mg HS PO Last administered on 01/21/17 20:29; Start 01/10/17 at 23:00 Citalopram Hydrobromide (CeleXA) 40 mg DAILY PO Last administered on 01/14/17 08:57; Start 01/11/17 at 09:00; Stop 01/14/17 at 19:16; Status DC Acetaminophen (Tylenol) 650 mg PRN Q6HRS PRN PO PAIN / TEMP; Start 01/10/17 at 22:45; Status Cancel Multi-Ingredient Ointment (Analgesic [place]) 1 evie PRN QID PRN TP MUSCLE PAIN; Start 01/10/17 at 22:45 Al Hydroxide/Mg Hydroxide (Mylanta Plus Xs) 15 ml PRN AFTMEALHC PRN PO DYSPEPSIA; Start 01/10/17 at 22:45 Magnesium Hydroxide (Milk Of Magnesia) 2,400 mg PRN QHS PRN PO CONSTIPATION; Start 01/10/17 at 22:45; Stop 01/11/17 at 10:44; Status DC Info (FLU VACCINE per PROTOCOL) 1 ea PRN 1X PRN MC PER PROTOCOL; Start at 23:15; Status UNV Influenza Virus Vaccine Quadrival (Fluarix Quad [id number] Syringe) 0.5 ml ONCE ONCE VAX IM Last administered on 01/11/17 09:51; Start 01/11/17 at 09:00; Stop 01/11/17 at 09:01; Status DC Acetaminophen (Tylenol) 650 mg PRN Q4HRS PRN PO PAIN / TEMP; Start 01/11/17 at 08:00 Albuterol Sulfate (Ventolin) 2.5 mg PRN TID PRN NEB SHORTNESS OF BREATH; Start 01/11/17 at 08:00 Aspirin (Children'S Aspirin) 81 mg DAILY PO Last administered on 01/21/17 09: 18; Start 01/11/17 at 09:00 Bisacodyl (Dulcolax Supp) 10 mg PRN DAILY PRN RC CONSTIPATION; Start 01/11/17 at 08:00 Clopidogrel Bisulfate (Plavix) 75 mg DAILY PO Last administered on 01/21/17 09 :19; Start 01/11/17 at 09:00 Levothyroxine Sodium (Synthroid) 88 mcg DAILYAC PO Last administered on 09:18; Start 01/12/17 at 07:30 Magnesium Hydroxide (Milk Of Magnesia) 2,400 mg PRN DAILY PRN PO CONSTIPATION; Start 01/11/17 at 08:00 Polyethylene Glycol (miraLAX) 17 gm PRN DAILY PRN PO CONSTIPATION; Start at 08:00 Tamsulosin HCl (Flomax) 0.4 mg DAILY PO Last administered on 01/21/17 09:18; Start 01/11/17 at 09:00 Guaifenesin/ Codeine Phosphate (Robitussin Ac) 10 ml PRN Q4HRS PRN PO COUGH; Start 01/11/17 at 09:00 Cetirizine HCl (ZyrTEC) 10 mg DAILY PO Last administered on 01/21/17 09:18; Start 01/11/17 at 09:00 Multivitamins/ Calcium (Thera-M Plus) 1 tab DAILY PO Last administered on 09:18; Start 01/11/17 at 09:00 Calamine (Calamine Lotion) 1 evie PRN TID PRN TP ITCHING; Start 01/11/17 at 10: 30; Stop 01/13/17 at 07:12; Status DC Sodium Polystyrene Sulfonate (Kayexalate) 15 gm 1X ONCE PO Last administered on 01/11/17 09:36; Start 01/11/17 at 09:00; Stop 01/11/17 at 09:01; Status DC Quetiapine Fumarate (SEROquel) 25 mg HS PO Last administered on 01/21/17 20:28 ; Start 01/12/17 at 21:00 Calamine (Calamine Lotion) 1 evie PRN TID PRN TP ITCHING; Start 01/13/17 at 07: 12 Citalopram Hydrobromide (CeleXA) 30 mg DAILY PO Last administered on 01/21/17 09:17; Start 01/15/17 at 09:00 Quetiapine Fumarate (SEROquel) 12.5 mg BID@0900,1300 PO Last administered on 15:45; Start 01/15/17 at 09:00; Stop 01/16/17 at 18:29; Status DC Quetiapine Fumarate (SEROquel) 12.5 mg DAILY PO Last administered on 01/21/17 09:19; Start 01/17/17 at 09:00 Vitamin D (Vitamin D3) 50,000 unit WEEKLY PO Last administered on 01/19/17 17: 20; Start 01/19/17 at 16:00 Alprazolam (Xanax) 0.25 mg BID PO Last administered on 01/21/17 20:31; Start 01/20/17 at 21:00 Active Scripts Active Reported Donepezil Hcl 10 Mg Tablet 10 Mg PO HS Albuterol Sulfate Neb Soln (Albuterol Sulfate) 2.5 Mg/3 Ml Vial.neb 1 Vial NEB PRN TID PRN Alprazolam 0.5 Mg Tablet 0.5 Mg PO BID Tylenol (Acetaminophen) 325 Mg Tablet 650 Mg PO PRN Q4HRS PRN Plavix (Clopidogrel Bisulfate) 75 Mg Tablet 75 Mg PO DAILY Multivitamins (Multivitamin) 1 Each Tablet 1 Tab PO DAILY Miralax (Polyethylene Glycol 3350) 17 Gm Powd.pack 17 Gm PO PRN DAILY PRN Milk Of Magnesia (Magnesium Hydroxide) 400 Mg/5 Ml Oral.susp 30 Ml PO PRN DAILY PRN Loratadine 10 Mg Tablet 10 Mg PO DAILY Lisinopril 5 Mg Tablet 5 Mg PO DAILY Levothyroxine Sodium 88 Mcg Tablet 88 Mcg PO DAILYAC Guaifenesin Ac Cough Syrup (Guaifenesin/Codeine Phosphate) 473 Ml Liquid 10 Ml PO PRN Q4HRS PRN Flomax (Tamsulosin Hcl) 0.4 Mg Cap.er.24h 0.4 Mg PO DAILY Bisacodyl 10 Mg Supp.rect 10 Mg RC PRN DAILY PRN Citalopram Hbr (Citalopram Hydrobromide) 40 Mg Tablet 40 Mg PO DAILY Caladryl 1%-8% Lotion (Pramoxine HCl/Calamine) 177 Ml Lotion 1 Evie TP PRN TID PRN Aspirin 81 Mg Tab.chew 81 Mg PO DAILY Diagnosis: Problems: (1) Anxiety disorder (2) Bipolar affective, mixed (3) Impulse control disorder KATARZYNA GRANT MD Jan 21, 2017 21:25
[2017-01-22 06:05] VITALS: BP_SYST 117; BP_SYST 160; BP_DIAS 67; BP_DIAS 98
[2017-01-22] MEDS: LEVOTHYROXINE 88 MCG TABLET PO SCH (09:38)
[2017-01-22] MEDS: TAMSULOSIN 0.4 MG CAP.ER.24H. PO SCH (09:39)
[2017-01-22] MEDS: QUEtiapine 25 MG TABLET. PO SCH ×2 (09:39→20:00)
[2017-01-22] MEDS: CETIRIZINE HCL 10 MG TABLET PO SCH (09:39)
[2017-01-22] MEDS: ASPIRIN 81 MG TAB.CHEW PO SCH (09:39)
[2017-01-22] MEDS: CLOPIDOGREL BISULFATE 75 MG TABLET PO SCH (09:39)
[2017-01-22] MEDS: CITALOPRAM 10 MG TABLET. PO SCH (09:39)
[2017-01-22] MEDS: MULTIVITAMIN with MINERAL TABLET. PO SCH (09:39)
[2017-01-22] MEDS: ALPRAZolam 0.5 MG TABLET PO SCH (09:44)
--- NOTE | 2017-01-22 10:49 | PN ---
DATE: 01/19/2017 This is a late entry 01/19/2017 and covers the elements not covered in my initial 01/19/2017. SUBJECTIVE: I met with the patient evening 01/19/2017. He has been withdrawn, spends much time in his room, that is where I met with him. WBC has increased to 13.2. We will defer to Dr. Sylvester. UA has reflexed to culture. He is refused to talk to the nursing staff about reasons for him making the will the way he has and that is certainly his prerogative. He has cut out his biological family from the will and is unclear of his reasons for this, but again that is a personal issue. He seems well oriented. REVIEW OF SYSTEMS: Ambulation impaired. No CV, , pulmonary, eye system symptoms on review. MENTAL STATUS EXAM: Reasonably oriented. Speech is coherent, has some latency, abstraction fair, computation impaired, language function intact, attention span short. Mood and affect somewhat withdrawn. LABORATORY DATA: Reviewed. IMPRESSION: Unchanged from initial note. PLAN: Continue current psychotropics, Seroquel 12.5 mg in the morning and 25 at night, Celexa 40 mg a day, Xanax 0.5 b.i.d. We will reduce it 0.25 b.i.d. May increase Seroquel further which might additionally help with his thought disorder, mood symptoms and help the anxiety as well and we can minimize the usage of benzodiazepines. Reviewed drug interactions, risk/benefit ratio favors no further change. KATARZYNA GRANT MD DR: SAMANTHA/luis miguel JOB#: [id number] / [id number]
--- NOTE | 2017-01-22 10:58 | PN ---
DATE: 01/20/2017 PSYCHIATRIC PROGRESS NOTE This late entry 01/20/2017, covers elements not covered in my initial note of 01/20/2017. I met with the patient in the evening of 01/20/2017 in his room. Overall, the patient has been upbeat calm, cooperative, withdrawn, per nursing report. REVIEW OF SYSTEMS: No CV, , pulmonary, eye, ENT system symptoms on review. MENTAL STATUS EXAM: Reasonably oriented. Speech is coherent. He is pleasant, verbal, abstraction fair, computation impaired, language function intact. Mood and affect is improved. IMPRESSION: Unchanged from initial note. PLAN: Continue current psychotropics. Reviewed drug interactions, risk/benefit ratio favors no further change. KATARZYNA GRANT MD DR: SAMANTHA/luis miguel JOB#: [id number] / [id number]
[2017-01-22 16:52] VITALS: BP 116/63
[2017-01-22] MEDS: DONEPEZIL HCL 10 MG TABLET PO SCH (20:00)
--- NOTE | 2017-01-22 21:15 | PDOC ---
Exam Ric Demential Exam: Ric Note: Please also refer to the separate dictated note~for this date of service dictated separately.~Patient seen individually. Discussed the patient with Nursing staff reviewed the chart.~Reviewed interim history and current functioning. Reviewed vital signs,~Labs/ Radiology~and current medications noted below. Continue current treatment with the changes noted in the dictated addendum note Assessment: Vital Signs: Vital Signs Date Time Temp Pulse Resp B/P (MAP) Pulse Ox O2 Delivery O2 Flow Rate FiO2 01/22/17 16:52 98.0 66 18 116/63 (80) 95 01/21/17 06:24 Room Air I&O Intake and Output 01/23/17 07:00 Intake Total 960 ml Balance 960 ml Intake Oral 960 ml Current Medications: Meds: Current Medications Sodium Chloride 1,000 ml @ 100 mls/hr 1X ONCE IV ; Start 01/10/17 at 19:30; Stop 01/10/17 at 19:30; Status DC Alprazolam (Xanax) 0.5 mg BID PO Last administered on 01/20/17 08:05; Start at 23:00; Stop 01/20/17 at 12:46; Status DC Donepezil HCl (Aricept) 10 mg HS PO Last administered on 01/22/17 20:00; Start 01/10/17 at 23:00 Citalopram Hydrobromide (CeleXA) 40 mg DAILY PO Last administered on 01/14/17 08:57; Start 01/11/17 at 09:00; Stop 01/14/17 at 19:16; Status DC Acetaminophen (Tylenol) 650 mg PRN Q6HRS PRN PO PAIN / TEMP; Start 01/10/17 at 22:45; Status Cancel Multi-Ingredient Ointment (Analgesic [place]) 1 evie PRN QID PRN TP MUSCLE PAIN; Start 01/10/17 at 22:45 Al Hydroxide/Mg Hydroxide (Mylanta Plus Xs) 15 ml PRN AFTMEALHC PRN PO DYSPEPSIA; Start 01/10/17 at 22:45 Magnesium Hydroxide (Milk Of Magnesia) 2,400 mg PRN QHS PRN PO CONSTIPATION; Start 01/10/17 at 22:45; Stop 01/11/17 at 10:44; Status DC Info (FLU VACCINE per PROTOCOL) 1 ea PRN 1X PRN MC PER PROTOCOL; Start at 23:15; Status UNV Influenza Virus Vaccine Quadrival (Fluarix Quad [id number] Syringe) 0.5 ml ONCE ONCE VAX IM Last administered on 01/11/17 09:51; Start 01/11/17 at 09:00; Stop 01/11/17 at 09:01; Status DC Acetaminophen (Tylenol) 650 mg PRN Q4HRS PRN PO PAIN / TEMP; Start 01/11/17 at 08:00 Albuterol Sulfate (Ventolin) 2.5 mg PRN TID PRN NEB SHORTNESS OF BREATH; Start 01/11/17 at 08:00 Aspirin (Children'S Aspirin) 81 mg DAILY PO Last administered on 01/22/17 09: 39; Start 01/11/17 at 09:00 Bisacodyl (Dulcolax Supp) 10 mg PRN DAILY PRN RC CONSTIPATION; Start 01/11/17 at 08:00 Clopidogrel Bisulfate (Plavix) 75 mg DAILY PO Last administered on 01/22/17 09 :39; Start 01/11/17 at 09:00 Levothyroxine Sodium (Synthroid) 88 mcg DAILYAC PO Last administered on 09:38; Start 01/12/17 at 07:30 Magnesium Hydroxide (Milk Of Magnesia) 2,400 mg PRN DAILY PRN PO CONSTIPATION; Start 01/11/17 at 08:00 Polyethylene Glycol (miraLAX) 17 gm PRN DAILY PRN PO CONSTIPATION; Start at 08:00 Tamsulosin HCl (Flomax) 0.4 mg DAILY PO Last administered on 01/22/17 09:39; Start 01/11/17 at 09:00 Guaifenesin/ Codeine Phosphate (Robitussin Ac) 10 ml PRN Q4HRS PRN PO COUGH; Start 01/11/17 at 09:00 Cetirizine HCl (ZyrTEC) 10 mg DAILY PO Last administered on 01/22/17 09:39; Start 01/11/17 at 09:00 Multivitamins/ Calcium (Thera-M Plus) 1 tab DAILY PO Last administered on 09:39; Start 01/11/17 at 09:00 Calamine (Calamine Lotion) 1 evie PRN TID PRN TP ITCHING; Start 01/11/17 at 10: 30; Stop 01/13/17 at 07:12; Status DC Sodium Polystyrene Sulfonate (Kayexalate) 15 gm 1X ONCE PO Last administered on 01/11/17 09:36; Start 01/11/17 at 09:00; Stop 01/11/17 at 09:01; Status DC Quetiapine Fumarate (SEROquel) 25 mg HS PO Last administered on 01/22/17 20:00 ; Start 01/12/17 at 21:00 Calamine (Calamine Lotion) 1 evie PRN TID PRN TP ITCHING; Start 01/13/17 at 07: 12 Citalopram Hydrobromide (CeleXA) 30 mg DAILY PO Last administered on 01/22/17 09:39; Start 01/15/17 at 09:00 Quetiapine Fumarate (SEROquel) 12.5 mg BID@0900,1300 PO Last administered on 15:45; Start 01/15/17 at 09:00; Stop 01/16/17 at 18:29; Status DC Quetiapine Fumarate (SEROquel) 12.5 mg DAILY PO Last administered on 01/22/17 09:39; Start 01/17/17 at 09:00; Stop 01/22/17 at 18:13; Status DC Vitamin D (Vitamin D3) 50,000 unit WEEKLY PO Last administered on 01/19/17 17: 20; Start 01/19/17 at 16:00 Alprazolam (Xanax) 0.25 mg BID PO Last administered on 01/22/17 09:44; Start 01/20/17 at 21:00; Stop 01/22/17 at 20:59; Status DC Quetiapine Fumarate (SEROquel) 12.5 mg BID92 PO ; Start 01/23/17 at 09:00 Active Scripts Active Reported Donepezil Hcl 10 Mg Tablet 10 Mg PO HS Albuterol Sulfate Neb Soln (Albuterol Sulfate) 2.5 Mg/3 Ml Vial.neb 1 Vial NEB PRN TID PRN Alprazolam 0.5 Mg Tablet 0.5 Mg PO BID Tylenol (Acetaminophen) 325 Mg Tablet 650 Mg PO PRN Q4HRS PRN Plavix (Clopidogrel Bisulfate) 75 Mg Tablet 75 Mg PO DAILY Multivitamins (Multivitamin) 1 Each Tablet 1 Tab PO DAILY Miralax (Polyethylene Glycol 3350) 17 Gm Powd.pack 17 Gm PO PRN DAILY PRN Milk Of Magnesia (Magnesium Hydroxide) 400 Mg/5 Ml Oral.susp 30 Ml PO PRN DAILY PRN Loratadine 10 Mg Tablet 10 Mg PO DAILY Lisinopril 5 Mg Tablet 5 Mg PO DAILY Levothyroxine Sodium 88 Mcg Tablet 88 Mcg PO DAILYAC Guaifenesin Ac Cough Syrup (Guaifenesin/Codeine Phosphate) 473 Ml Liquid 10 Ml PO PRN Q4HRS PRN Flomax (Tamsulosin Hcl) 0.4 Mg Cap.er.24h 0.4 Mg PO DAILY Bisacodyl 10 Mg Supp.rect 10 Mg RC PRN DAILY PRN Citalopram Hbr (Citalopram Hydrobromide) 40 Mg Tablet 40 Mg PO DAILY Caladryl 1%-8% Lotion (Pramoxine HCl/Calamine) 177 Ml Lotion 1 Evie TP PRN TID PRN Aspirin 81 Mg Tab.chew 81 Mg PO DAILY Diagnosis: Problems: (1) Anxiety disorder (2) Bipolar affective, mixed (3) Impulse control disorder KATARZYNA GRATN MD Jan 22, 2017 21:15
[2017-01-23 06:00] VITALS: BP 126/60
[2017-01-23] MEDS: CETIRIZINE HCL 10 MG TABLET PO SCH (08:37)
[2017-01-23] MEDS: ASPIRIN 81 MG TAB.CHEW PO SCH (08:37)
[2017-01-23] MEDS: CLOPIDOGREL BISULFATE 75 MG TABLET PO SCH (08:37)
[2017-01-23] MEDS: TAMSULOSIN 0.4 MG CAP.ER.24H. PO SCH (08:37)
[2017-01-23] MEDS: MULTIVITAMIN with MINERAL TABLET. PO SCH (08:37)
[2017-01-23] MEDS: LEVOTHYROXINE 88 MCG TABLET PO SCH (08:38)
[2017-01-23] MEDS: CITALOPRAM 10 MG TABLET. PO SCH (08:38)
[2017-01-23] MEDS: ALPRAZolam 0.25 MG TABLET PO SCH (08:39)
[2017-01-23] MEDS: QUEtiapine 25 MG TABLET. PO SCH ×3 (08:40→19:17)
[2017-01-23 10:21] LABS: ALBUMIN 3.1 g/dL (3.4-5.0); CALCIUM 8.7 mg/dL (8.5-10.1); CREATININE 2.2 mg/dL (0.7-1.3); GFR 28.7; TOTAL BILIRUBIN 0.3 mg/dL (0.2-1.0); TOTAL PROTEIN 6.3 g/dL (6.4-8.2)
[2017-01-23 10:33] LABS: BASO # 0.1 x10^3/uL (0.0-0.2); BASO % 1 % (0-3); EOS # 0.3 x10^3/uL (0.0-0.7); EOS % 3 % (0-3); HEMATOCRIT 41.4 % (39.0-53.0); LYMPH # 2.2 x10^3/uL (1.0-4.8); LYMPH % 22 % (24-48); MEAN CORPUSCULAR HEMOGLOBIN 30 pg (25-35); MEAN CORPUSCULAR HGB CONC 34 g/dL (31-37); MEAN CORPUSCULAR VOLUME 89 fL (79-100); MONO # 0.8 x10^3/uL (0.0-1.1); MONO % 8 % (0-9); NEUT # 6.9 x10^3uL (1.8-7.7); NEUT % 67 % (31-73); PLATELET COUNT 205 x10^3/uL (140-400); RED BLOOD COUNT 4.66 x10^6/uL (4.30-5.70); RED CELL DISTRIBUTION WIDTH 15.7 % (11.5-14.5); WHITE BLOOD COUNT 10.3 x10^3/uL (4.0-11.0)
--- NOTE | 2017-01-23 14:23 | PN ---
DATE: 01/21/2017 This late entry 01/21/2017 covers elements not covered in my initial note of 01/21/2017. I met with the patient evening of 01/21/2017. Overall, patient is trying to get up to go to the toilet and had a fall. No injury was noted. He had some loose stools. Received a skin tear to his arm. He is somewhat withdrawn, gets back to his room after meals. No homicidal ideation. REVIEW OF SYSTEMS: Impaired ambulation. No CV, , pulmonary, eye system symptoms on review. MENTAL STATUS EXAM: Reasonably oriented. Speech has some latency, often responses monosyllabic. Abstraction fair, computation impaired, language function intact, attention span fair. Mood and affect showing improvement, seems a little less paranoid. LABORATORY DATA: Reviewed. IMPRESSION: Unchanged from initial note. PLAN: Continue current psychotropics mentioned in my initial note, reviewed drug interactions, risk/benefit ratio favors no further change. MAN Lizet GRANT MD DR: SAMANTHA/luis miguel JOB#: [id number] / [id number]
[2017-01-23 16:02] VITALS: BP 121/82
[2017-01-23] MEDS: DONEPEZIL HCL 10 MG TABLET PO SCH (19:16)
--- NOTE | 2017-01-23 20:59 | PDOC ---
Exam Ric Demential Exam: Ric Note: Please also refer to the separate dictated note~for this date of service dictated separately.~Patient seen individually. Discussed the patient with Nursing staff reviewed the chart.~Reviewed interim history and current functioning. Reviewed vital signs,~Labs/ Radiology~and current medications noted below. Continue current treatment with the changes noted in the dictated addendum note Assessment: Vital Signs: Vital Signs Date Time Temp Pulse Resp B/P (MAP) Pulse Ox O2 Delivery O2 Flow Rate FiO2 01/23/17 16:02 98.0 98 19 121/82 (95) 99 01/23/17 06:00 Room Air I&O Intake and Output 01/24/17 07:00 Intake Total 1080 ml Balance 1080 ml Intake Oral 1080 ml # Bowel Movements 1 Labs: Laboratory Tests Test 01/23/17 09:59 White Blood Count 10.3 x10^3/uL (4.0-11.0) Red Blood Count 4.66 x10^6/uL (4.30-5.70) Hemoglobin 14.0 g/dL (13.0-17.5) Hematocrit 41.4 % (39.0-53.0) Mean Corpuscular Volume 89 fL (79-100) Mean Corpuscular Hemoglobin 30 pg (25-35) Mean Corpuscular Hemoglobin Concent 34 g/dL (31-37) Red Cell Distribution Width 15.7 % (11.5-14.5) H Platelet Count 205 x10^3/uL (140-400) Neutrophils (%) (Auto) 67 % (31-73) Lymphocytes (%) (Auto) 22 % (24-48) L Monocytes (%) (Auto) 8 % (0-9) Eosinophils (%) (Auto) 3 % (0-3) Basophils (%) (Auto) 1 % (0-3) Neutrophils # (Auto) 6.9 x10^3uL (1.8-7.7) Lymphocytes # (Auto) 2.2 x10^3/uL (1.0-4.8) Monocytes # (Auto) 0.8 x10^3/uL (0.0-1.1) Eosinophils # (Auto) 0.3 x10^3/uL (0.0-0.7) Basophils # (Auto) 0.1 x10^3/uL (0.0-0.2) Sodium Level 141 mmol/L (136-145) Potassium Level 4.0 mmol/L (3.5-5.1) Chloride Level 106 mmol/L (98-107) Carbon Dioxide Level 26 mmol/L (21-32) Anion Gap 9 (6-14) Blood Urea Nitrogen 30 mg/dL (8-26) H Creatinine 2.2 mg/dL (0.7-1.3) H Estimated GFR (Cockcroft-Gault) 28.7 BUN/Creatinine Ratio 14 (6-20) Glucose Level 148 mg/dL (70-99) H Calcium Level 8.7 mg/dL (8.5-10.1) Magnesium Level 2.0 mg/dL (1.8-2.4) Total Bilirubin 0.3 mg/dL (0.2-1.0) Aspartate Amino Transferase (AST) 15 U/L (15-37) Alanine Aminotransferase (ALT) 20 U/L (16-63) Alkaline Phosphatase 61 U/L (46-116) Total Protein 6.3 g/dL (6.4-8.2) L Albumin 3.1 g/dL (3.4-5.0) L Albumin/Globulin Ratio 1.0 (1.0-1.7) Current Medications: Meds: Current Medications Sodium Chloride 1,000 ml @ 100 mls/hr 1X ONCE IV ; Start 01/10/17 at 19:30; Stop 01/10/17 at 19:30; Status DC Alprazolam (Xanax) 0.5 mg BID PO Last administered on 01/20/17 08:05; Start at 23:00; Stop 01/20/17 at 12:46; Status DC Donepezil HCl (Aricept) 10 mg HS PO Last administered on 01/23/17 19:16; Start 01/10/17 at 23:00 Citalopram Hydrobromide (CeleXA) 40 mg DAILY PO Last administered on 01/14/17 08:57; Start 01/11/17 at 09:00; Stop 01/14/17 at 19:16; Status DC Acetaminophen (Tylenol) 650 mg PRN Q6HRS PRN PO PAIN / TEMP; Start 01/10/17 at 22:45; Status Cancel Multi-Ingredient Ointment (Analgesic [place]) 1 evie PRN QID PRN TP MUSCLE PAIN; Start 01/10/17 at 22:45 Al Hydroxide/Mg Hydroxide (Mylanta Plus Xs) 15 ml PRN AFTMEALHC PRN PO DYSPEPSIA; Start 01/10/17 at 22:45 Magnesium Hydroxide (Milk Of Magnesia) 2,400 mg PRN QHS PRN PO CONSTIPATION; Start 01/10/17 at 22:45; Stop 01/11/17 at 10:44; Status DC Info (FLU VACCINE per PROTOCOL) 1 ea PRN 1X PRN MC PER PROTOCOL; Start at 23:15; Status UNV Influenza Virus Vaccine Quadrival (Fluarix Quad 0449-9562 Syringe) 0.5 ml ONCE ONCE VAX IM Last administered on 01/11/17 09:51; Start 01/11/17 at 09:00; Stop 01/11/17 at 09:01; Status DC Acetaminophen (Tylenol) 650 mg PRN Q4HRS PRN PO PAIN / TEMP; Start 01/11/17 at 08:00 Albuterol Sulfate (Ventolin) 2.5 mg PRN TID PRN NEB SHORTNESS OF BREATH; Start 01/11/17 at 08:00 Aspirin (Children'S Aspirin) 81 mg DAILY PO Last administered on 01/23/17 08: 37; Start 01/11/17 at 09:00 Bisacodyl (Dulcolax Supp) 10 mg PRN DAILY PRN RC CONSTIPATION; Start 01/11/17 at 08:00 Clopidogrel Bisulfate (Plavix) 75 mg DAILY PO Last administered on 01/23/17 08 :37; Start 01/11/17 at 09:00 Levothyroxine Sodium (Synthroid) 88 mcg DAILYAC PO Last administered on 08:38; Start 01/12/17 at 07:30 Magnesium Hydroxide (Milk Of Magnesia) 2,400 mg PRN DAILY PRN PO CONSTIPATION; Start 01/11/17 at 08:00 Polyethylene Glycol (miraLAX) 17 gm PRN DAILY PRN PO CONSTIPATION; Start at 08:00 Tamsulosin HCl (Flomax) 0.4 mg DAILY PO Last administered on 01/23/17 08:37; Start 01/11/17 at 09:00 Guaifenesin/ Codeine Phosphate (Robitussin Ac) 10 ml PRN Q4HRS PRN PO COUGH; Start 01/11/17 at 09:00 Cetirizine HCl (ZyrTEC) 10 mg DAILY PO Last administered on 01/23/17 08:37; Start 01/11/17 at 09:00 Multivitamins/ Calcium (Thera-M Plus) 1 tab DAILY PO Last administered on 08:37; Start 01/11/17 at 09:00 Calamine (Calamine Lotion) 1 evie PRN TID PRN TP ITCHING; Start 01/11/17 at 10: 30; Stop 01/13/17 at 07:12; Status DC Sodium Polystyrene Sulfonate (Kayexalate) 15 gm 1X ONCE PO Last administered on 01/11/17 09:36; Start 01/11/17 at 09:00; Stop 01/11/17 at 09:01; Status DC Quetiapine Fumarate (SEROquel) 25 mg HS PO Last administered on 01/23/17 19:17 ; Start 01/12/17 at 21:00 Calamine (Calamine Lotion) 1 evie PRN TID PRN TP ITCHING; Start 01/13/17 at 07: 12 Citalopram Hydrobromide (CeleXA) 30 mg DAILY PO Last administered on 01/23/17 08:38; Start 01/15/17 at 09:00 Quetiapine Fumarate (SEROquel) 12.5 mg BID@0900,1300 PO Last administered on 15:45; Start 01/15/17 at 09:00; Stop 01/16/17 at 18:29; Status DC Quetiapine Fumarate (SEROquel) 12.5 mg DAILY PO Last administered on 01/22/17 09:39; Start 01/17/17 at 09:00; Stop 01/22/17 at 18:13; Status DC Vitamin D (Vitamin D3) 50,000 unit WEEKLY PO Last administered on 01/19/17 17: 20; Start 01/19/17 at 16:00 Alprazolam (Xanax) 0.25 mg BID PO Last administered on 01/22/17 09:44; Start 01/20/17 at 21:00; Stop 01/22/17 at 20:59; Status DC Quetiapine Fumarate (SEROquel) 12.5 mg BID92 PO Last administered on 01/23/17 14:41; Start 01/23/17 at 09:00 Alprazolam (Xanax) 0.25 mg DAILY PO Last administered on 01/23/17 08:39; Start 01/23/17 at 09:00; Stop 01/25/17 at 08:59 Active Scripts Active Reported Donepezil Hcl 10 Mg Tablet 10 Mg PO HS Albuterol Sulfate Neb Soln (Albuterol Sulfate) 2.5 Mg/3 Ml Vial.neb 1 Vial NEB PRN TID PRN Alprazolam 0.5 Mg Tablet 0.5 Mg PO BID Tylenol (Acetaminophen) 325 Mg Tablet 650 Mg PO PRN Q4HRS PRN Plavix (Clopidogrel Bisulfate) 75 Mg Tablet 75 Mg PO DAILY Multivitamins (Multivitamin) 1 Each Tablet 1 Tab PO DAILY Miralax (Polyethylene Glycol 3350) 17 Gm Powd.pack 17 Gm PO PRN DAILY PRN Milk Of Magnesia (Magnesium Hydroxide) 400 Mg/5 Ml Oral.susp 30 Ml PO PRN DAILY PRN Loratadine 10 Mg Tablet 10 Mg PO DAILY Lisinopril 5 Mg Tablet 5 Mg PO DAILY Levothyroxine Sodium 88 Mcg Tablet 88 Mcg PO DAILYAC Guaifenesin Ac Cough Syrup (Guaifenesin/Codeine Phosphate) 473 Ml Liquid 10 Ml PO PRN Q4HRS PRN Flomax (Tamsulosin Hcl) 0.4 Mg Cap.er.24h 0.4 Mg PO DAILY Bisacodyl 10 Mg Supp.rect 10 Mg RC PRN DAILY PRN Citalopram Hbr (Citalopram Hydrobromide) 40 Mg Tablet 40 Mg PO DAILY Caladryl 1%-8% Lotion (Pramoxine HCl/Calamine) 177 Ml Lotion 1 Evie TP PRN TID PRN Aspirin 81 Mg Tab.chew 81 Mg PO DAILY Diagnosis: Problems: (1) Anxiety disorder (2) Bipolar affective, mixed (3) Impulse control disorder KATARZYNA GRANT MD Jan 23, 2017 20:59
--- NOTE | 2017-01-23 23:28 | PN ---
DATE: 01/22/2017 This is a late entry for 01/22/2017 covers elements not covered in my initial note of 01/22/2017. SUBJECTIVE: I met with the patient in the evening of 01/22/2017. I met with him in his room. Overall, he is doing reasonably well. He gets a little anxious at times withdrawn. Some of the other demented patients can make it difficult for him and he reacts to them. REVIEW OF SYSTEMS: Positive for some tiredness. No CV, , pulmonary, eye, ENT system symptoms on review. He always keeps the drapes of his room drawn open to let the sunshine in and we processed this. 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 MENTAL STATUS EXAM: Reasonably oriented. Speech has some latency, coherent. Abstraction fair, computation impaired, language function intact, attention span short. Mood and affect is improved. LABORATORY DATA: Reviewed. IMPRESSION: Unchanged from initial note. PLAN: Continue Celexa 40 mg a day. We will go ahead and taper the Xanax, which is currently at 0.25 mg b.i.d. We will drop it down to 0.25 mg once a day for 2 days and stop it and add Seroquel 12.5 mg at 02:00 p.m. Continue 25 mg at bedtime and 12.5 mg in the morning, Aricept 10 mg a day, Celexa 40 mg a day. Reviewed drug interactions. Risk/benefit ratio favors no further change at this time. MAN Lizet GRANT MD DR: SAMANTHA/luis miguel JOB#: [id number] / [id number]
[2017-01-24] MEDS: LEVOTHYROXINE 88 MCG TABLET PO SCH (05:09)
[2017-01-24 06:33] VITALS: BP 131/67
[2017-01-24] MEDS: CLOPIDOGREL BISULFATE 75 MG TABLET PO SCH (08:40)
[2017-01-24] MEDS: ASPIRIN 81 MG TAB.CHEW PO SCH (08:40)
[2017-01-24] MEDS: TAMSULOSIN 0.4 MG CAP.ER.24H. PO SCH (08:40)
[2017-01-24] MEDS: MULTIVITAMIN with MINERAL TABLET. PO SCH (08:40)
[2017-01-24] MEDS: CETIRIZINE HCL 10 MG TABLET PO SCH (08:40)
[2017-01-24] MEDS: CITALOPRAM 10 MG TABLET. PO SCH (08:40)
[2017-01-24] MEDS: ALPRAZolam 0.25 MG TABLET PO SCH (08:40)
[2017-01-24] MEDS: QUEtiapine 25 MG TABLET. PO SCH ×3 (08:40→20:26)
[2017-01-24 16:53] VITALS: BP 109/62
[2017-01-24] MEDS: DONEPEZIL HCL 10 MG TABLET PO SCH (20:26)
--- NOTE | 2017-01-24 21:11 | PDOC ---
Exam Ric Demential Exam: Ric Note: Please also refer to the separate dictated note~for this date of service dictated separately.~Patient seen individually. Discussed the patient with Nursing staff reviewed the chart.~Reviewed interim history and current functioning. Reviewed vital signs,~Labs/ Radiology~and current medications noted below. Continue current treatment with the changes noted in the dictated addendum note Assessment: Vital Signs: Vital Signs Date Time Temp Pulse Resp B/P (MAP) Pulse Ox O2 Delivery O2 Flow Rate FiO2 01/24/17 16:53 96.9 73 18 109/62 (78) 96 01/23/17 06:00 Room Air I&O Intake and Output 01/25/17 07:00 Intake Total 600 ml Balance 600 ml Intake Oral 600 ml Current Medications: Meds: Current Medications Sodium Chloride 1,000 ml @ 100 mls/hr 1X ONCE IV ; Start 01/10/17 at 19:30; Stop 01/10/17 at 19:30; Status DC Alprazolam (Xanax) 0.5 mg BID PO Last administered on 01/20/17 08:05; Start at 23:00; Stop 01/20/17 at 12:46; Status DC Donepezil HCl (Aricept) 10 mg HS PO Last administered on 01/24/17 20:26; Start 01/10/17 at 23:00 Citalopram Hydrobromide (CeleXA) 40 mg DAILY PO Last administered on 01/14/17 08:57; Start 01/11/17 at 09:00; Stop 01/14/17 at 19:16; Status DC Acetaminophen (Tylenol) 650 mg PRN Q6HRS PRN PO PAIN / TEMP; Start 01/10/17 at 22:45; Status Cancel Multi-Ingredient Ointment (Analgesic [place]) 1 evie PRN QID PRN TP MUSCLE PAIN; Start 01/10/17 at 22:45 Al Hydroxide/Mg Hydroxide (Mylanta Plus Xs) 15 ml PRN AFTMEALHC PRN PO DYSPEPSIA; Start 01/10/17 at 22:45 Magnesium Hydroxide (Milk Of Magnesia) 2,400 mg PRN QHS PRN PO CONSTIPATION; Start 01/10/17 at 22:45; Stop 01/11/17 at 10:44; Status DC Info (FLU VACCINE per PROTOCOL) 1 ea PRN 1X PRN MC PER PROTOCOL; Start at 23:15; Status UNV Influenza Virus Vaccine Quadrival (Fluarix Quad [id number] Syringe) 0.5 ml ONCE ONCE VAX IM Last administered on 01/11/17 09:51; Start 01/11/17 at 09:00; Stop 01/11/17 at 09:01; Status DC Acetaminophen (Tylenol) 650 mg PRN Q4HRS PRN PO PAIN / TEMP; Start 01/11/17 at 08:00 Albuterol Sulfate (Ventolin) 2.5 mg PRN TID PRN NEB SHORTNESS OF BREATH; Start 01/11/17 at 08:00 Aspirin (Children'S Aspirin) 81 mg DAILY PO Last administered on 01/24/17 08: 40; Start 01/11/17 at 09:00 Bisacodyl (Dulcolax Supp) 10 mg PRN DAILY PRN RC CONSTIPATION; Start 01/11/17 at 08:00 Clopidogrel Bisulfate (Plavix) 75 mg DAILY PO Last administered on 01/24/17 08 :40; Start 01/11/17 at 09:00 Levothyroxine Sodium (Synthroid) 88 mcg DAILYAC PO Last administered on 05:09; Start 01/12/17 at 07:30 Magnesium Hydroxide (Milk Of Magnesia) 2,400 mg PRN DAILY PRN PO CONSTIPATION; Start 01/11/17 at 08:00 Polyethylene Glycol (miraLAX) 17 gm PRN DAILY PRN PO CONSTIPATION; Start at 08:00 Tamsulosin HCl (Flomax) 0.4 mg DAILY PO Last administered on 01/24/17 08:40; Start 01/11/17 at 09:00 Guaifenesin/ Codeine Phosphate (Robitussin Ac) 10 ml PRN Q4HRS PRN PO COUGH; Start 01/11/17 at 09:00 Cetirizine HCl (ZyrTEC) 10 mg DAILY PO Last administered on 01/24/17 08:40; Start 01/11/17 at 09:00 Multivitamins/ Calcium (Thera-M Plus) 1 tab DAILY PO Last administered on 08:40; Start 01/11/17 at 09:00 Calamine (Calamine Lotion) 1 evie PRN TID PRN TP ITCHING; Start 01/11/17 at 10: 30; Stop 01/13/17 at 07:12; Status DC Sodium Polystyrene Sulfonate (Kayexalate) 15 gm 1X ONCE PO Last administered on 01/11/17 09:36; Start 01/11/17 at 09:00; Stop 01/11/17 at 09:01; Status DC Quetiapine Fumarate (SEROquel) 25 mg HS PO Last administered on 01/24/17 20:26 ; Start 01/12/17 at 21:00 Calamine (Calamine Lotion) 1 evie PRN TID PRN TP ITCHING; Start 01/13/17 at 07: 12 Citalopram Hydrobromide (CeleXA) 30 mg DAILY PO Last administered on 01/24/17 08:40; Start 01/15/17 at 09:00 Quetiapine Fumarate (SEROquel) 12.5 mg BID@0900,1300 PO Last administered on 15:45; Start 01/15/17 at 09:00; Stop 01/16/17 at 18:29; Status DC Quetiapine Fumarate (SEROquel) 12.5 mg DAILY PO Last administered on 01/22/17 09:39; Start 01/17/17 at 09:00; Stop 01/22/17 at 18:13; Status DC Vitamin D (Vitamin D3) 50,000 unit WEEKLY PO Last administered on 01/19/17 17: 20; Start 01/19/17 at 16:00 Alprazolam (Xanax) 0.25 mg BID PO Last administered on 01/22/17 09:44; Start 01/20/17 at 21:00; Stop 01/22/17 at 20:59; Status DC Quetiapine Fumarate (SEROquel) 12.5 mg BID92 PO Last administered on 01/24/17 14:52; Start 01/23/17 at 09:00 Alprazolam (Xanax) 0.25 mg DAILY PO Last administered on 01/24/17 08:40; Start 01/23/17 at 09:00; Stop 01/25/17 at 08:59 Active Scripts Active Reported Donepezil Hcl 10 Mg Tablet 10 Mg PO HS Albuterol Sulfate Neb Soln (Albuterol Sulfate) 2.5 Mg/3 Ml Vial.neb 1 Vial NEB PRN TID PRN Alprazolam 0.5 Mg Tablet 0.5 Mg PO BID Tylenol (Acetaminophen) 325 Mg Tablet 650 Mg PO PRN Q4HRS PRN Plavix (Clopidogrel Bisulfate) 75 Mg Tablet 75 Mg PO DAILY Multivitamins (Multivitamin) 1 Each Tablet 1 Tab PO DAILY Miralax (Polyethylene Glycol 3350) 17 Gm Powd.pack 17 Gm PO PRN DAILY PRN Milk Of Magnesia (Magnesium Hydroxide) 400 Mg/5 Ml Oral.susp 30 Ml PO PRN DAILY PRN Loratadine 10 Mg Tablet 10 Mg PO DAILY Lisinopril 5 Mg Tablet 5 Mg PO DAILY Levothyroxine Sodium 88 Mcg Tablet 88 Mcg PO DAILYAC Guaifenesin Ac Cough Syrup (Guaifenesin/Codeine Phosphate) 473 Ml Liquid 10 Ml PO PRN Q4HRS PRN Flomax (Tamsulosin Hcl) 0.4 Mg Cap.er.24h 0.4 Mg PO DAILY Bisacodyl 10 Mg Supp.rect 10 Mg RC PRN DAILY PRN Citalopram Hbr (Citalopram Hydrobromide) 40 Mg Tablet 40 Mg PO DAILY Caladryl 1%-8% Lotion (Pramoxine HCl/Calamine) 177 Ml Lotion 1 Evie TP PRN TID PRN Aspirin 81 Mg Tab.chew 81 Mg PO DAILY Diagnosis: Problems: (1) Anxiety disorder (2) Bipolar affective, mixed (3) Impulse control disorder KATARZYNA GRANT MD Jan 24, 2017 21:11
--- NOTE | 2017-01-24 23:46 | PN ---
DATE: 01/23/2017 PSYCHIATRIC PROGRESS NOTE This is a late entry for 01/23/2017, covers elements not covered in my initial note of 01/23/2017. SUBJECTIVE: I met with the patient the evening of 01/23/2017 in his room. He has been pleasant, ambulates with a walker, more out of his room, attended groups, which is an improvement, less depressed, less anxious. REVIEW OF SYSTEMS: Ambulation impaired. No CV, , pulmonary, eye, ENT system symptoms on review. MENTAL STATUS EXAM: Reasonably oriented. Speech is coherent, abstraction fair, computation somewhat impaired, language function intact. Mood and affect appears improved. LABORATORY DATA: Reviewed. IMPRESSION: Unchanged from initial note. PLAN: Continue current psychotropics. Xanax has been tapered and discontinued. Seroquel was increased. Reviewed drug interactions. Risk/benefit ratio favors no further change. MAN Lizet GRANT MD DR: SAMANTHA/luis miguel JOB#: [id number] / [id number]
[2017-01-25 06:50] VITALS: BP 150/88
[2017-01-25] MEDS: CITALOPRAM 10 MG TABLET. PO SCH (10:07)
[2017-01-25] MEDS: ASPIRIN 81 MG TAB.CHEW PO SCH (10:07)
[2017-01-25] MEDS: LEVOTHYROXINE 88 MCG TABLET PO SCH (10:07)
[2017-01-25] MEDS: TAMSULOSIN 0.4 MG CAP.ER.24H. PO SCH (10:07)
[2017-01-25] MEDS: CETIRIZINE HCL 10 MG TABLET PO SCH (10:07)
[2017-01-25] MEDS: MULTIVITAMIN with MINERAL TABLET. PO SCH (10:08)
[2017-01-25] MEDS: QUEtiapine 25 MG TABLET. PO SCH ×3 (10:08→20:28)
[2017-01-25] MEDS: CLOPIDOGREL BISULFATE 75 MG TABLET PO SCH (10:08)
[2017-01-25 16:32] VITALS: BP 122/61
[2017-01-25] MEDS: DONEPEZIL HCL 10 MG TABLET PO SCH (20:28)
--- NOTE | 2017-01-25 21:15 | PDOC ---
Exam Ric Demential Exam: Ric Note: Please also refer to the separate dictated note~for this date of service dictated separately.~Patient seen individually. Discussed the patient with Nursing staff reviewed the chart.~Reviewed interim history and current functioning. Reviewed vital signs,~Labs/ Radiology~and current medications noted below. Continue current treatment with the changes noted in the dictated addendum note Assessment: Vital Signs: Vital Signs Date Time Temp Pulse Resp B/P (MAP) Pulse Ox O2 Delivery O2 Flow Rate FiO2 01/25/17 16:32 97.8 93 20 122/61 (81) 94 01/25/17 06:50 Room Air I&O Intake and Output 01/26/17 07:00 Intake Total 960 ml Balance 960 ml Intake Oral 960 ml # Bowel Movements 2 Current Medications: Meds: Current Medications Sodium Chloride 1,000 ml @ 100 mls/hr 1X ONCE IV ; Start 01/10/17 at 19:30; Stop 01/10/17 at 19:30; Status DC Alprazolam (Xanax) 0.5 mg BID PO Last administered on 01/20/17 08:05; Start at 23:00; Stop 01/20/17 at 12:46; Status DC Donepezil HCl (Aricept) 10 mg HS PO Last administered on 01/25/17 20:28; Start 01/10/17 at 23:00 Citalopram Hydrobromide (CeleXA) 40 mg DAILY PO Last administered on 01/14/17 08:57; Start 01/11/17 at 09:00; Stop 01/14/17 at 19:16; Status DC Acetaminophen (Tylenol) 650 mg PRN Q6HRS PRN PO PAIN / TEMP; Start 01/10/17 at 22:45; Status Cancel Multi-Ingredient Ointment (Analgesic [place]) 1 evie PRN QID PRN TP MUSCLE PAIN; Start 01/10/17 at 22:45 Al Hydroxide/Mg Hydroxide (Mylanta Plus Xs) 15 ml PRN AFTMEALHC PRN PO DYSPEPSIA; Start 01/10/17 at 22:45 Magnesium Hydroxide (Milk Of Magnesia) 2,400 mg PRN QHS PRN PO CONSTIPATION; Start 01/10/17 at 22:45; Stop 01/11/17 at 10:44; Status DC Info (FLU VACCINE per PROTOCOL) 1 ea PRN 1X PRN MC PER PROTOCOL; Start at 23:15; Status UNV Influenza Virus Vaccine Quadrival (Fluarix Quad [id number] Syringe) 0.5 ml ONCE ONCE VAX IM Last administered on 01/11/17 09:51; Start 01/11/17 at 09:00; Stop 01/11/17 at 09:01; Status DC Acetaminophen (Tylenol) 650 mg PRN Q4HRS PRN PO PAIN / TEMP; Start 01/11/17 at 08:00 Albuterol Sulfate (Ventolin) 2.5 mg PRN TID PRN NEB SHORTNESS OF BREATH; Start 01/11/17 at 08:00 Aspirin (Children'S Aspirin) 81 mg DAILY PO Last administered on 01/25/17 10: 07; Start 01/11/17 at 09:00 Bisacodyl (Dulcolax Supp) 10 mg PRN DAILY PRN RC CONSTIPATION; Start 01/11/17 at 08:00 Clopidogrel Bisulfate (Plavix) 75 mg DAILY PO Last administered on 01/25/17 10 :08; Start 01/11/17 at 09:00 Levothyroxine Sodium (Synthroid) 88 mcg DAILYAC PO Last administered on 10:07; Start 01/12/17 at 07:30 Magnesium Hydroxide (Milk Of Magnesia) 2,400 mg PRN DAILY PRN PO CONSTIPATION; Start 01/11/17 at 08:00 Polyethylene Glycol (miraLAX) 17 gm PRN DAILY PRN PO CONSTIPATION; Start at 08:00 Tamsulosin HCl (Flomax) 0.4 mg DAILY PO Last administered on 01/25/17 10:07; Start 01/11/17 at 09:00 Guaifenesin/ Codeine Phosphate (Robitussin Ac) 10 ml PRN Q4HRS PRN PO COUGH; Start 01/11/17 at 09:00 Cetirizine HCl (ZyrTEC) 10 mg DAILY PO Last administered on 01/25/17 10:07; Start 01/11/17 at 09:00 Multivitamins/ Calcium (Thera-M Plus) 1 tab DAILY PO Last administered on 10:08; Start 01/11/17 at 09:00 Calamine (Calamine Lotion) 1 evie PRN TID PRN TP ITCHING; Start 01/11/17 at 10: 30; Stop 01/13/17 at 07:12; Status DC Sodium Polystyrene Sulfonate (Kayexalate) 15 gm 1X ONCE PO Last administered on 01/11/17 09:36; Start 01/11/17 at 09:00; Stop 01/11/17 at 09:01; Status DC Quetiapine Fumarate (SEROquel) 25 mg HS PO Last administered on 01/25/17 20:28 ; Start 01/12/17 at 21:00 Calamine (Calamine Lotion) 1 evie PRN TID PRN TP ITCHING; Start 01/13/17 at 07: 12 Citalopram Hydrobromide (CeleXA) 30 mg DAILY PO Last administered on 01/25/17 10:07; Start 01/15/17 at 09:00 Quetiapine Fumarate (SEROquel) 12.5 mg BID@0900,1300 PO Last administered on 15:45; Start 01/15/17 at 09:00; Stop 01/16/17 at 18:29; Status DC Quetiapine Fumarate (SEROquel) 12.5 mg DAILY PO Last administered on 01/22/17 09:39; Start 01/17/17 at 09:00; Stop 01/22/17 at 18:13; Status DC Vitamin D (Vitamin D3) 50,000 unit WEEKLY PO Last administered on 01/19/17 17: 20; Start 01/19/17 at 16:00 Alprazolam (Xanax) 0.25 mg BID PO Last administered on 01/22/17 09:44; Start 01/20/17 at 21:00; Stop 01/22/17 at 20:59; Status DC Quetiapine Fumarate (SEROquel) 12.5 mg BID92 PO Last administered on 01/25/17 14:16; Start 01/23/17 at 09:00 Alprazolam (Xanax) 0.25 mg DAILY PO Last administered on 01/24/17 08:40; Start 01/23/17 at 09:00; Stop 01/25/17 at 08:59; Status DC Active Scripts Active Reported Donepezil Hcl 10 Mg Tablet 10 Mg PO HS Albuterol Sulfate Neb Soln (Albuterol Sulfate) 2.5 Mg/3 Ml Vial.neb 1 Vial NEB PRN TID PRN Alprazolam 0.5 Mg Tablet 0.5 Mg PO BID Tylenol (Acetaminophen) 325 Mg Tablet 650 Mg PO PRN Q4HRS PRN Plavix (Clopidogrel Bisulfate) 75 Mg Tablet 75 Mg PO DAILY Multivitamins (Multivitamin) 1 Each Tablet 1 Tab PO DAILY Miralax (Polyethylene Glycol 3350) 17 Gm Powd.pack 17 Gm PO PRN DAILY PRN Milk Of Magnesia (Magnesium Hydroxide) 400 Mg/5 Ml Oral.susp 30 Ml PO PRN DAILY PRN Loratadine 10 Mg Tablet 10 Mg PO DAILY Lisinopril 5 Mg Tablet 5 Mg PO DAILY Levothyroxine Sodium 88 Mcg Tablet 88 Mcg PO DAILYAC Guaifenesin Ac Cough Syrup (Guaifenesin/Codeine Phosphate) 473 Ml Liquid 10 Ml PO PRN Q4HRS PRN Flomax (Tamsulosin Hcl) 0.4 Mg Cap.er.24h 0.4 Mg PO DAILY Bisacodyl 10 Mg Supp.rect 10 Mg RC PRN DAILY PRN Citalopram Hbr (Citalopram Hydrobromide) 40 Mg Tablet 40 Mg PO DAILY Caladryl 1%-8% Lotion (Pramoxine HCl/Calamine) 177 Ml Lotion 1 Evie TP PRN TID PRN Aspirin 81 Mg Tab.chew 81 Mg PO DAILY Diagnosis: Problems: (1) Anxiety disorder (2) Bipolar affective, mixed (3) Impulse control disorder KATARZYNA GRANT MD Jan 25, 2017 21:15
[2017-01-25] MEDS ORDERED: CHOL500050 PO (23:42)
[2017-01-25] MEDS ORDERED: CITA20TA9 PO (23:44)
[2017-01-25] MEDS ORDERED: MAG30ORA2 PO (23:47)
[2017-01-25] MEDS ORDERED: METH29OI TP (23:49)
[2017-01-25] MEDS ORDERED: MULT-638 PO (23:50)
[2017-01-25] MEDS ORDERED: QUET25TA5 PO ×2 (23:52→23:53)
[2017-01-26] MEDS: LEVOTHYROXINE 88 MCG TABLET PO SCH (05:25)
[2017-01-26 06:11] VITALS: BP 133/71
[2017-01-26] MEDS: CETIRIZINE HCL 10 MG TABLET PO SCH (07:53)
[2017-01-26] MEDS: TAMSULOSIN 0.4 MG CAP.ER.24H. PO SCH (07:53)
[2017-01-26] MEDS: CITALOPRAM 10 MG TABLET. PO SCH (07:53)
[2017-01-26] MEDS: CHOLECALCIFEROL (VITAMIN D3) 50,000 UNIT CAPSULE PO SCH (07:53)
[2017-01-26] MEDS: MULTIVITAMIN with MINERAL TABLET. PO SCH (07:53)
[2017-01-26] MEDS: ASPIRIN 81 MG TAB.CHEW PO SCH (07:53)
[2017-01-26] MEDS: CLOPIDOGREL BISULFATE 75 MG TABLET PO SCH (07:53)
[2017-01-26] MEDS: QUEtiapine 25 MG TABLET. PO SCH (07:53)
--- NOTE | 2017-01-26 21:21 | PDOC ---
Exam Ric Demential Exam: Ric Note: Please also refer to the separate dictated note~for this date of service dictated separately.~Patient seen individually. Discussed the patient with Nursing staff reviewed the chart.~Reviewed interim history and current functioning. Reviewed vital signs,~Labs/ Radiology~and current medications noted below. Continue current treatment with the changes noted in the dictated addendum note Assessment: Vital Signs: Vital Signs Date Time Temp Pulse Resp B/P (MAP) Pulse Ox O2 Delivery O2 Flow Rate FiO2 01/26/17 06:11 97.4 68 20 133/71 (91) 97 01/25/17 06:50 Room Air I&O Intake and Output 01/27/17 07:00 Intake Total 240 ml Balance 240 ml Intake Oral 240 ml Current Medications: Meds: Current Medications Sodium Chloride 1,000 ml @ 100 mls/hr 1X ONCE IV ; Start 01/10/17 at 19:30; Stop 01/10/17 at 19:30; Status DC Alprazolam (Xanax) 0.5 mg BID PO Last administered on 01/20/17 08:05; Start at 23:00; Stop 01/20/17 at 12:46; Status DC Donepezil HCl (Aricept) 10 mg HS PO Last administered on 01/25/17 20:28; Start 01/10/17 at 23:00; Stop 01/26/17 at 09:54; Status DC Citalopram Hydrobromide (CeleXA) 40 mg DAILY PO Last administered on 01/14/17 08:57; Start 01/11/17 at 09:00; Stop 01/14/17 at 19:16; Status DC Acetaminophen (Tylenol) 650 mg PRN Q6HRS PRN PO PAIN / TEMP; Start 01/10/17 at 22:45; Status Cancel Multi-Ingredient Ointment (Analgesic [place]) 1 evie PRN QID PRN TP MUSCLE PAIN; Start 01/10/17 at 22:45; Stop 01/26/17 at 09:54; Status DC Al Hydroxide/Mg Hydroxide (Mylanta Plus Xs) 15 ml PRN AFTMEALHC PRN PO DYSPEPSIA; Start 01/10/17 at 22:45; Stop 01/26/17 at 09:54; Status DC Magnesium Hydroxide (Milk Of Magnesia) 2,400 mg PRN QHS PRN PO CONSTIPATION; Start 01/10/17 at 22:45; Stop 01/11/17 at 10:44; Status DC Info (FLU VACCINE per PROTOCOL) 1 ea PRN 1X PRN MC PER PROTOCOL; Start at 23:15; Status UNV Influenza Virus Vaccine Quadrival (Fluarix Quad 6153-5068 Syringe) 0.5 ml ONCE ONCE VAX IM Last administered on 01/11/17 09:51; Start 01/11/17 at 09:00; Stop 01/11/17 at 09:01; Status DC Acetaminophen (Tylenol) 650 mg PRN Q4HRS PRN PO PAIN / TEMP; Start 01/11/17 at 08:00; Stop 01/26/17 at 09:54; Status DC Albuterol Sulfate (Ventolin) 2.5 mg PRN TID PRN NEB SHORTNESS OF BREATH; Start 01/11/17 at 08:00; Stop 01/26/17 at 09:54; Status DC Aspirin (Children'S Aspirin) 81 mg DAILY PO Last administered on 01/26/17 07: 53; Start 01/11/17 at 09:00; Stop 01/26/17 at 09:54; Status DC Bisacodyl (Dulcolax Supp) 10 mg PRN DAILY PRN RC CONSTIPATION; Start 01/11/17 at 08:00; Stop 01/26/17 at 09:54; Status DC Clopidogrel Bisulfate (Plavix) 75 mg DAILY PO Last administered on 01/26/17 07 :53; Start 01/11/17 at 09:00; Stop 01/26/17 at 09:54; Status DC Levothyroxine Sodium (Synthroid) 88 mcg DAILYAC PO Last administered on 05:25; Start 01/12/17 at 07:30; Stop 01/26/17 at 09:54; Status DC Magnesium Hydroxide (Milk Of Magnesia) 2,400 mg PRN DAILY PRN PO CONSTIPATION; Start 01/11/17 at 08:00; Stop 01/26/17 at 09:54; Status DC Polyethylene Glycol (miraLAX) 17 gm PRN DAILY PRN PO CONSTIPATION; Start at 08:00; Stop 01/26/17 at 09:54; Status DC Tamsulosin HCl (Flomax) 0.4 mg DAILY PO Last administered on 01/26/17 07:53; Start 01/11/17 at 09:00; Stop 01/26/17 at 09:55; Status DC Guaifenesin/ Codeine Phosphate (Robitussin Ac) 10 ml PRN Q4HRS PRN PO COUGH; Start 01/11/17 at 09:00; Stop 01/26/17 at 09:55; Status DC Cetirizine HCl (ZyrTEC) 10 mg DAILY PO Last administered on 01/26/17 07:53; Start 01/11/17 at 09:00; Stop 01/26/17 at 09:55; Status DC Multivitamins/ Calcium (Thera-M Plus) 1 tab DAILY PO Last administered on 07:53; Start 01/11/17 at 09:00; Stop 01/26/17 at 09:55; Status DC Calamine (Calamine Lotion) 1 evie PRN TID PRN TP ITCHING; Start 01/11/17 at 10: 30; Stop 01/13/17 at 07:12; Status DC Sodium Polystyrene Sulfonate (Kayexalate) 15 gm 1X ONCE PO Last administered on 01/11/17 09:36; Start 01/11/17 at 09:00; Stop 01/11/17 at 09:01; Status DC Quetiapine Fumarate (SEROquel) 25 mg HS PO Last administered on 01/25/17 20:28 ; Start 01/12/17 at 21:00; Stop 01/26/17 at 09:55; Status DC Calamine (Calamine Lotion) 1 evie PRN TID PRN TP ITCHING; Start 01/13/17 at 07: 12; Stop 01/26/17 at 09:55; Status DC Citalopram Hydrobromide (CeleXA) 30 mg DAILY PO Last administered on 01/26/17 07:53; Start 01/15/17 at 09:00; Stop 01/26/17 at 09:55; Status DC Quetiapine Fumarate (SEROquel) 12.5 mg BID@0900,1300 PO Last administered on 15:45; Start 01/15/17 at 09:00; Stop 01/16/17 at 18:29; Status DC Quetiapine Fumarate (SEROquel) 12.5 mg DAILY PO Last administered on 01/22/17 09:39; Start 01/17/17 at 09:00; Stop 01/22/17 at 18:13; Status DC Vitamin D (Vitamin D3) 50,000 unit WEEKLY PO Last administered on 01/26/17 07: 53; Start 01/19/17 at 16:00; Stop 01/26/17 at 09:55; Status DC Alprazolam (Xanax) 0.25 mg BID PO Last administered on 01/22/17 09:44; Start 01/20/17 at 21:00; Stop 01/22/17 at 20:59; Status DC Quetiapine Fumarate (SEROquel) 12.5 mg BID92 PO Last administered on 01/26/17 07:53; Start 01/23/17 at 09:00; Stop 01/26/17 at 09:55; Status DC Alprazolam (Xanax) 0.25 mg DAILY PO Last administered on 01/24/17 08:40; Start 01/23/17 at 09:00; Stop 01/25/17 at 08:59; Status DC Active Scripts Active Reported Seroquel (Quetiapine Fumarate) 25 Mg Tablet 12.5 Mg PO [id number] Seroquel (Quetiapine Fumarate) 25 Mg Tablet 25 Mg PO QHS Thera M Plus Tablet (Multivits,Ca,Minerals/Iron/FA) 1 Each Tablet 1 Tab PO DAILY Analgesic [place] (Methyl Salicylate/Menthol) 28 Gm Oint...g. 1 Evie TP PRN QID PRN Mag-Al Plus Xs Suspension (Mag Hydrox/Al Hydrox/Simeth) 30 Ml Oral.susp 15 Ml PO PRN AFTMEALHC PRN Celexa (Citalopram Hydrobromide) 20 Mg Tablet 30 Mg PO DAILY Vitamin D3 (Cholecalciferol (Vitamin D3)) 50,000 Unit Capsule 50,000 Unit PO QFR Donepezil Hcl 10 Mg Tablet 10 Mg PO HS Albuterol Sulfate Neb Soln (Albuterol Sulfate) 2.5 Mg/3 Ml Vial.neb 2.5 Mg NEB PRN TID PRN Tylenol (Acetaminophen) 325 Mg Tablet 650 Mg PO PRN Q4HRS PRN MDD 4000 mg/24 hrs Plavix (Clopidogrel Bisulfate) 75 Mg Tablet 75 Mg PO DAILY Miralax (Polyethylene Glycol 3350) 17 Gm Powd.pack 17 Gm PO PRN DAILY PRN Milk Of Magnesia (Magnesium Hydroxide) 400 Mg/5 Ml Oral.susp 2,400 Mg PO PRN DAILY PRN Loratadine 10 Mg Tablet 10 Mg PO DAILY Levothyroxine Sodium 88 Mcg Tablet 88 Mcg PO DAILYAC Flomax (Tamsulosin Hcl) 0.4 Mg Cap.er.24h 0.4 Mg PO DAILY Bisacodyl 10 Mg Supp.rect 10 Mg RC PRN DAILY PRN Caladryl 1%-8% Lotion (Pramoxine HCl/Calamine) 177 Ml Lotion 1 Evie TP PRN TID PRN Aspirin 81 Mg Tab.chew 81 Mg PO DAILY Diagnosis: Problems: (1) Anxiety disorder (2) Bipolar affective, mixed (3) Impulse control disorder KATARZYNA GRANT MD Jan 26, 2017 21:21
--- NOTE | 2017-01-26 21:28 | PN ---
DATE: 01/24/2017 PSYCHIATRIC PROGRESS NOTE This late entry 01/24/2017 covers elements, not covered in my initial note of 01/24/2017. SUBJECTIVE: I met with the patient evening of 01/24/2017. The patient slept 7-1/4 hours previous evening, somewhat withdrawn. REVIEW OF SYSTEMS: No CV, , pulmonary, eye, ENT system symptoms on review. Reliability fair. Ambulation impaired with a walker. MENTAL STATUS EXAM: Reasonably oriented. Speech has some latency, coherent. Abstraction fair, computation impaired. Language function intact. Mood and affect less withdrawn. LABORATORY DATA: Reviewed. IMPRESSION: Unchanged from initial note. PLAN: Continue current psychotropics reviewed. Drug interactions risk/benefit ratio favors no further change. KATARZYNA GRANT MD DR: SAMANTHA/luis miguel JOB#: [id number] / [id number]
--- NOTE | 2017-01-27 02:25 | PN ---
DATE: 01/25/2017 PSYCHIATRIC PROGRESS NOTE This is a late entry for 01/25/2017, covers elements not covered in my initial note of 01/25/2017. SUBJECTIVE: I met with the patient the evening of 01/25/2017. Staffed at a treatment team meeting with the entire team the morning of 01/25/2017. Reviewed the patient's history, diagnosis, discharge plans for 01/26/2017. Overall, the patient is doing reasonably well, smiling, interacting, joking, seems perhaps a little less paranoid about his family, but not sure of that. REVIEW OF SYSTEMS: Ambulation impaired with a walker. No CV, , pulmonary, eye, ENT system symptoms on review. MENTAL STATUS EXAM: Reasonably oriented. Speech is coherent, has some latency. Abstraction fair, computation impaired, language function intact. Mood and affect is improved. LABORATORY DATA: Reviewed. IMPRESSION: Unchanged from initial note. PLAN: Continue current psychotropics mentioned in my initial note. Reviewed drug interactions. Risk/benefit ratio favors no further change. KATARZYNA GRANT MD DR: SAMANTHA/luis miguel JOB#: [id number] / [id number]
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
== END 2017-01-26 09:54 | DRG 884 ==
LOC: ER 17:46 → GEROPSY 22:06
PROVIDERS: ADMIT Psychiatry & Neurology Psychiatry; ATTEND Psychiatry & Neurology Psychiatry
DX: F01.51 Vascular dementia, unspecified severity, with behavioral disturbance (principal); N18.4 Chronic kidney disease, stage 4 (severe); I13.0 Hypertensive heart and chronic kidney disease with heart failure and stage 1 through stage 4 chronic kidney disease, or unspecified chronic kidney disease; I50.9 Heart failure, unspecified; E87.5 Hyperkalemia; F02.81 Dementia in other diseases classified elsewhere, unspecified severity, with behavioral disturbance; F31.64 Bipolar disorder, current episode mixed, severe, with psychotic features; G30.0 Alzheimer's disease with early onset; E03.9 Hypothyroidism, unspecified; E78.00 Pure hypercholesterolemia, unspecified; E78.5 Hyperlipidemia, unspecified; K59.09 Other constipation; F41.9 Anxiety disorder, unspecified; F63.9 Impulse disorder, unspecified; I25.10 Atherosclerotic heart disease of native coronary artery without angina pectoris; N40.0 Benign prostatic hyperplasia without lower urinary tract symptoms; Z66 Do not resuscitate; Z79.899 Other long term (current) drug therapy; I25.2 Old myocardial infarction; Z87.440 Personal history of urinary (tract) infections; Z91.14 Patient's other noncompliance with medication regimen; Z88.2 Allergy status to sulfonamides; Z87.891 Personal history of nicotine dependence
CPT/HCPCS: 36415; 71010; 80048; 80053; 80061; 80076; 80307; 81001; 82306; 82607; 83036; 83540; 83550; 83735; 84436; 84443; 84480; 85025; 86592; 86593; 87086; 90686; 93005; 92610; 99285-25; G0479